=== PATIENT | male | born 1940 | race Caucasian/White ===

== ENCOUNTER 2020-04-30 13:24 | Outpatient (CLI) | payer MEDICARE, SELFPAY ==
--- NOTE | 2020-04-30 13:44 | ECHO_ITS ---
Patient Info Name: Devyn Candelario Age: 80 years : 1940 Gender: Male Ht: 70 in Wt: 200 lbs BSA: 2.14 m2 HR: 60 bpm BP: 102 / 62 mmHg Heart Rhythm: Sinus Rhythm Technical Quality: Good Exam Date: 04/30/2020 2:00 PM Exam Location: [facility] Patient Status: Outpatient Admit Date: 04/30/2020 Staff Ordering Physician: Heri Ovalle DO Senior Design Engineering Specialist: Terrell Salas RDCS Attending Provider: Heri Ovalle DO Referring Physician: Vasquez ADAMES; Exam Type: CA echo doppler color flow Study Info Indications I42.1 - Obstructive hypertrophic cardiomyopathy Complete two-dimensional, color flow and Doppler transthoracic echocardiogram is performed. Strain analysis performed. History/Risk Factors HOCM. Summary 1. Left ventricular chamber dimension is normal. 2. Ventricular septum is sigmoid shaped. No LVOT obstruction. 3. Left ventricular systolic function is normal, estimated at 60-65%. 4. There is mildly increased left ventricular wall thickness. 5. The left ventricular diastolic function is grade I diastolic dysfunction. 6. E/e' 13 is mildly elevated. 7. Global longitudinal strain is normal at -17.9%. 8. The mitral valve has mildly calcified annulus. 9. There is trace tricuspid valve regurgitation. 10. No pulmonary hypertension, estimated pulmonary arterial systolic pressure is 26 mmHg. Left Ventricle E/e' 13 is mildly elevated. Global longitudinal strain is normal at -17.9%. Ventricular septum is sigmoid shaped. No LVOT obstruction. Left ventricular chamber dimension is normal. Left ventricular systolic function is normal, estimated at 60-65%. There is mildly increased left ventricular wall thickness. The left ventricular diastolic function is grade I diastolic dysfunction. Right Ventricle Right ventricular chamber dimension is normal. Right ventricular systolic function is normal. Left Atria Left atrial chamber dimension is normal. Right Atria Right atrial chamber dimension is normal. Aortic Valve The aortic valve is trileaflet. There is no aortic valve stenosis. There is no aortic valve regurgitation. Pulmonic Valve There is no pulmonic regurgitation. Mitral Valve The mitral valve has mildly calcified annulus. There is no mitral valve stenosis. There is no mitral valve regurgitation. Tricuspid Valve There is trace tricuspid valve regurgitation. No pulmonary hypertension, estimated pulmonary arterial systolic pressure is 26 mmHg. Pericardium/Pleural There is no pericardial effusion. Inferior Vena Cava Normal inferior vena cava with >50% collapse upon inspiration consistent with normal right atrial pressure, 5 mmHg. Aorta The aortic root size at the sinus of Valsalva is normal. Left Ventricular Outflow Tract Name Value Normal LVOT 2D LVOT Diameter 2.0 cm LVOT Doppler LVOT Peak Gradient 3 mmHg LVOT Mean Gradient 1 mmHg LVOT VTI 18 cm LVOT VTI/AV VTI Ratio 0.8 LVOT Stroke Volume 56 ml
== END 2020-04-30 13:25 | disposition home or self-care (01) ==
PROVIDERS: PCP Internal Medicine; Visit Provider Internal Medicine Cardiovascular Disease
DX: I42.1 Obstructive hypertrophic cardiomyopathy (principal)
CPT/HCPCS: 93306

== ENCOUNTER 2020-08-19 14:08 | Emergency (ER) | payer MEDICARE, SELFPAY ==
--- NOTE | ~2020-08-19 | CT_ITS ---
EXAMINATION: CT brain wo con DATE: 08/19/2020 16:41 INDICATION: Generalized weakness. TECHNIQUE: Computed tomography (CT) of the head was performed without intravenous contrast. The mA wa s adjusted according to patient size. Iterative reconstruction technique was employed. The dose-lengt h product was 605.33 mGy-cm. COMPARISON: Brain MRI 04/04/2014 FINDINGS: There is no intracranial hemorrhage, acute infarction, or abnormal intracranial mass lesion . There are scattered areas of low attenuation in the cerebral white matter, which is within normal l imits for the patient's age. The ventricles are normal in size. The paranasal sinuses are clear. Ther e are likely changes of ocular lens replacement surgeries. There are trace bilateral mastoid effusion s. IMPRESSION: 1. Normal aging brain. Reviewed, dictated and finalized at location A. IMPRESSION: 1. Normal aging brain.
--- NOTE | ~2020-08-19 | XR_ITS ---
EXAMINATION: XR chest 2V DATE: 08/19/2020 15:06 INDICATION: Generalized weakness. Confusion. TECHNIQUE: Frontal and lateral views of the chest were obtained. COMPARISON: CT abdomen and pelvis 06/24/2018 FINDINGS: The chest demonstrates clear lungs without pneumonia, pleural effusion, or pneumothorax. Th e heart size is normal. There are prominent paracardial fat pads. Surgical clips in the right upper q uadrant are likely from cholecystectomy. IMPRESSION: 1. No acute cardiopulmonary disease. Reviewed, dictated and finalized at location A.
[2020-08-19 14:20] VITALS: BP 99/49; PULSE 65; RESP 16; TEMP 36.3; O2SAT 98
--- NOTE | 2020-08-19 14:25 | ECG_ITS ---
Measurements Intervals [place] Rate: 65 P: 26 DC: 170 QRS: -27 QRSD: 70 T: 45 QT: 385 QTc: 403 Interpretive Statements SINUS RHYTHM RSR' IN V1 OR V2, PROBABLY NORMAL VARIANT LOW QRS VOLTAGE IN PRECORDIAL LEADS INFERIOR INFARCT, AGE INDETERMINATE BASELINE ARTIFACT- I, II, AVR, AVL, AVF, V2 ABNORMAL ECG Electronically Signed On 08-19-2020 14:43:52 CDT by Heri Ovalle D.O.
[2020-08-19 15:20] LABS: Basophils Percent Auto 0.6 % (0.2-1.2); Eosinophils Absolute Auto 0.1 K/mm3 (0-0.3); Eosinophils Percent Auto 1.1 % (0-4.4); Hematocrit 44.7 % (42.0-52.0); Hemoglobin 14.6 g/dL (14.0-18.0); Immature Granulocyte Absolute 0.01 K/mm3 (0.00-0.031); Immature Granulocyte Percent A 0.2 % (0-0.5); Immature Platelet Fraction Pct 2.9 % (0.9-11.2); Lymphocytes Absolute Auto 1.97 K/mm3 (0.9-3.2); Lymphocytes Percent Auto 42.2 % (18.3-44.2); Mean Corpuscular HGB Conc 32.7 g/dl (32-36); Mean Corpuscular Hemoglobin 28.2 pg (26-34); Mean Corpuscular Volume 86.3 fl (80-100); Mean Platelet Volume 8.9 fl (7.4-10.4); Monocytes Absolute Auto 0.7 K/mm3 (0.1-0.6); Monocytes Percent Auto 14.6 % (2.6-8.5); Neutrophils Absolute Auto 1.9 K/mm3 (1.3-6.7); Neutrophils Percent Auto 41.3 % (45.5-73.1); Platelet Count Result 149 k/mm3 (150-375); Red Blood Count 5.18 M/mm3 (4.6-6.20); Red Cell Distribution Width 16.3 % (11.5-14.5); White Blood Count 4.7 K/mm3 (4.5-10.0)
[2020-08-19] MEDS: SODIUM CHLORIDE 0.9% IV 1,000 ML 999 ML IV CONT (15:23)
[2020-08-19 15:30] LABS: Alanine Aminotransferase 22 U/L (4-50); Albumin Level 3.7 g/dL (3.5-5.1); Alkaline Phosphatase 68 U/L (38-126); Anion Gap 9 mmol/L (8-16); Aspartate Amino Transferase 34 U/L (17-59); Bilirubin,Total 0.7 mg/dL (0.2-1.3); Blood Urea Nitrogen 21 mg/dL (9-20); Calcium 8.6 mg/dL (8.4-10.2); Carbon Dioxide 27 mmol/L (22-30); Chloride 104 mmol/L (98-107); Estimated CRCL calculation 51 ml/min; Estimated Glomerular Filt Rate > 60; Glucose 116 mg/dL (75-110); Potassium 4.2 mmol/L (3.4-5.0); Sodium 140 mmol/L (137-145)
--- NOTE | 2020-08-19 16:30 | ED.WEAKNESS ---
HPI - Weakness General Chief complaint: Weakness Stated complaint: low blood pressure, dehydration Time Seen by Provider: 08/19/20 14:38 History of Present Illness HPI Narrative: Patient is a 80-year-old male who presents ER with weakness. Patient was at his urology appointment earlier and found to be hypotensive so he was sent here for further evaluation. reports over the weekend he was dragging his right foot when he walks when he typically only drags his left foot. She is thought she noticed some right eyelid drooping yesterday but has since resolved. Patient has dementia from her previous medical event. He is currently alert and oriented to self, the fact that he is in the hospital, and the year. He cannot give details as to why he is in the ER. denies any infectious component. Related Data Home Medications Medication Instructions Recorded Confirmed aspirin 81 mg tablet,delayed 81 mg PO DAILY 09/12/19 04/11/20 release cetirizine 10 mg capsule PO DAILY cap 04/11/20 04/11/20 omega 4-keb-mup-fish oil 1,000 mg 1 cap PO DAILY 04/11/20 04/11/20 (120 mg-180 mg) capsule Allergies Allergy/AdvReac Type Severity Reaction Status Date / Time diazepam Allergy Unknown Unknown Verified 04/11/20 09:51 No Known Allergies Allergy Unknown Verified 04/11/20 09:51 Review of Systems Review of Systems: ROS unobtainable: Yes unobtainable due to mental status PMFSH Past Medical History Medical History (Updated 08/19/20 @ 17:58 by Tyrone Cha MD) 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 Enlarged prostate without lower urinary tract symptoms (luts) History of sudden cardiac arrest HOCM (hypertrophic obstructive cardiomyopathy) Major depressive disorder with single episode, in full remission Mixed hyperlipidemia Surgical History Surgical History (Updated 08/19/20 @ 16:34 by Tyrone Cha MD) S/P drug eluting coronary stent placement Family History Family History Mother Family history of dementia Family history of Alzheimer's disease Father Patient's father is Family history of throat cancer Other Family history of arthritis Family history of cardiovascular disease Hypertension Social History Social History Smoking status: Former smoker Second hand tobacco smoke exposure: No Smoking end date: 10/25/78 Alcohol intake: current Gender identity (if verbalized by the patient): Male Exam Narrative: Exam Narrative: GENERAL: Well-appearing, well-nourished, and in no acute distress. HEAD: Normocephalic, atraumatic. EYES: PERRL and EOMI. ENT: Mucous membranes moist. CHEST: Clear to auscultation. No respiratory distress. HEART: Regular rate and rhythm. No murmur heard. Normal peripheral pulses. ABDOMEN: Soft, nontender, nondistende. EXTREMITIES: Normal range of motion. No edema. SKIN: Warm, dry, no rash. NEURO: No focal deficits. Alert and oriented x3 but unable to give a history. Cranial nerves II through XII intact. No drift. Course Course Emergency Course: Unremarkable evaluation. Hydrated. Discharge home. Vital Signs Vital signs: Vital Signs Temperature 97.4 F L 08/19/20 14:20 Pulse Rate 65 08/19/20 14:20 Respiratory Rate 16 08/19/20 14:20 Blood Pressure 99/49 L 08/19/20 14:20 Pulse Oximetry 98 08/19/20 14:20 Temperature 97.4 F L 08/19/20 14:20 Pulse Rate 65 08/19/20 14:20 Respiratory Rate 16 08/19/20 14:20 Blood Pressure 99/49 L 08/19/20 14:20 Pulse Oximetry 98 08/19/20 14:20 MDM - Weakness Lab Data Result diagrams: 08/19/20 15:12 08/19/20 15:12 Labs: Lab Results 08/19/20 08/19/20 Range/Units 15:12 15:12 WBC 4.7 (4.5-10.0) K/mm3 RBC 5.18 (4.6-6.20) M/mm3 Hgb 14.6 (14.0-18.0) g/dL Hct 44.7 (42.0-52.0) % MCV 86.3 (80-100) fl
[2020-08-19 17:00] VITALS: BP 103/65; PULSE 64; RESP 16; O2SAT 97
[2020-08-19 18:00] VITALS: BP 105/67; PULSE 62; RESP 16; O2SAT 97
== END 2020-08-19 18:00 | disposition home or self-care (01) ==
PROVIDERS: Emergency Provider Emergency Medicine; PCP Internal Medicine
DX: R53.1 Weakness (principal); I25.10 Atherosclerotic heart disease of native coronary artery without angina pectoris; N40.0 Benign prostatic hyperplasia without lower urinary tract symptoms; I42.1 Obstructive hypertrophic cardiomyopathy; E78.2 Mixed hyperlipidemia; Z95.5 Presence of coronary angioplasty implant and graft; Z87.891 Personal history of nicotine dependence
CPT/HCPCS: 36415; 70450; 71046; 80053; 85025; 85055; 93005; 96360; 99284; J7030

== ENCOUNTER 2020-11-30 20:24 | Emergency (ER) | payer MEDICARE, SELFPAY ==
[2020-11-30 20:25] VITALS: BP 94/62; PULSE 74; RESP 16; TEMP 36.3; O2SAT 99
--- NOTE | 2020-11-30 21:01 | ED.SKABFB ---
HPI - Skin/Abscess/Foreign Bdy General Chief complaint: Skin/Abscess/Foreign Body Stated complaint: possible spider bite Time Seen by Provider: 11/30/20 20:42 Source: patient Mode of arrival: ambulatory Limitations: no limitations History of Present Illness HPI narrative: Patient is a 72-year-old male complaining of red, tender area on his left pubis which his noticed today. also noticed yellowish, reddish discharge. Denies any fever or chills. Possible insect bite. 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 Enlarged prostate without lower urinary tract symptoms (luts) History of sudden cardiac arrest HOCM (hypertrophic obstructive cardiomyopathy) Major depressive disorder with single episode, in full remission Mixed hyperlipidemia Surgical History Surgical History S/P drug eluting coronary stent placement Family History Family History Mother Family history of dementia Family history of Alzheimer's disease Father Patient's father is Family history of throat cancer Other Family history of arthritis Family history of cardiovascular disease Hypertension Social History Social History Smoking status: Former smoker Second hand tobacco smoke exposure: No Smoking end date: 10/25/78 Alcohol intake: current Gender identity (if verbalized by the patient): Male Exam Const: General: no acute distress and alert Nutritional Appearance: well nourished HENMT: Head: normal to inspection Neck: Neck: normal visual inspection Resp: Effort & Inspection: normal respiratory effort Skin: Other: Erythematous, slightly tender, nonfluctuant with mild purulent discharge measuring approximately 3 x 4 cm left pubic area Course Vital Signs Vital signs: Vital Signs Temperature 36.3 C L 11/30/20 20:25 Pulse Rate 74 11/30/20 20:25 Respiratory Rate 16 11/30/20 20:25 Blood Pressure 94/62 L 11/30/20 20:25 Pulse Oximetry 99 11/30/20 20:25 Temperature 36.3 C L 11/30/20 20:25 Pulse Rate 74 11/30/20 20:25 Respiratory Rate 16 11/30/20 20:25 Blood Pressure 94/62 L 11/30/20 20:25 Pulse Oximetry 99 11/30/20 20:25 Discharge Plan Discharge Clinical Impression: Cellulitis Qualifiers: Site of cellulitis: unspecified site Qualified Code(s): L03.90 - Cellulitis, unspecified Patient Disposition: Home, Self-Care Condition: Stable Instructions: Antibiotic Form, Cellulitis (ED) Prescriptions: New doxycycline hyclate 100 mg capsule 100 mg PO BID 7 Days Qty: 14 RF: 0 No Action Zyrtec 10 mg capsule PO DAILY RF: 0 omega 3-iti-leh-fish oil [Fish Oil] 1,000 mg (120 mg-180 mg) capsule 1 cap PO DAILY RF: 0 lisinopril 2.5 mg tablet 2.5 mg PO DAILY Qty: 90 RF: 2 aspirin [Adult Low Dose Aspirin] 81 mg tablet,delayed release (DR/EC) 81 mg PO DAILY RF: 0 atorvastatin 40 mg tablet 40 mg PO DAILY Qty: 90 RF: 4 finasteride 5 mg tablet 5 mg PO DAILY Qty: 90 RF: 4 metoprolol tartrate 25 mg tablet 25 mg PO BID Qty: 180 RF: 4 Follow-up/Referrals: Ariel Garrett MD [Primary Care Provider] - 12/02/20 Time
[2020-11-30] MEDS: DOXYCYCLINE HYCLATE 100 MG TABLET PO (21:31)
[2020-11-30 21:55] VITALS: BP 100/62; PULSE 74; RESP 16; O2SAT 97
== END 2020-11-30 21:55 | disposition home or self-care (01) ==
PROVIDERS: Emergency Provider Emergency Medicine; PCP Internal Medicine
DX: L03.319 Cellulitis of trunk, unspecified (principal); I25.10 Atherosclerotic heart disease of native coronary artery without angina pectoris; N40.0 Benign prostatic hyperplasia without lower urinary tract symptoms; E78.2 Mixed hyperlipidemia; Z95.5 Presence of coronary angioplasty implant and graft; Z87.891 Personal history of nicotine dependence; Z79.82 Long term (current) use of aspirin
CPT/HCPCS: 99283; A9270

== ENCOUNTER 2020-12-21 22:43 | Inpatient (IN) | payer MEDICARE, SELFPAY ==
[2020-12-21] VITALS (10 sets, daily range): BP systolic 106–139; BP diastolic 58–82; PULSE 112–129; RESP 14–28; TEMP 39.5; O2SAT 95–99
--- NOTE | ~2020-12-21 | XR_ITS ---
XR chest 1V portable DATE: 12/21/2020 23:18 INDICATION: Cough TECHNIQUE: Portable upright AP chest on December 21, 2020 and 2319 hours COMPARISON: 08/19/2020 AP and lateral chest FINDINGS: Normal heart size. Aortic arch calcification. No hilar or mediastinal enlargement. There is retrocardiac left lower lobe infiltrate or atelectasis. There is mild atelectasis at the rig ht lung base. The lungs otherwise appear clear. No pleural effusion or pulmonary vascular congestion or pneumothorax. Bilateral rotator cuff atrophy and glenohumeral osteoarthritis. Diffuse osteopenia. Degenerative spur ring of the thoracic spine. IMPRESSION: Left lower lobe infiltrate or atelectasis and mild atelectasis at the right lung base Reviewed, dictated and finalized at location A. IR SERVICER IMPRESSION: Left lower lobe infiltrate or atelectasis and mild atelectasis at t he right lung base
--- NOTE | ~2020-12-21 | XR_ITS ---
XR chest port-a-cath/central DATE: 12/22/2020 03:22 INDICATION: Central line placement TECHNIQUE: Portable AP chest on December 22, 2020 at 0323 hours COMPARISON: December 21, 2020 portable AP chest at 2319 hours FINDINGS: Interval placement of right internal jugular central venous catheter, the catheter tip over lying the superior vena cava. There is no evidence of pneumothorax. There is pulmonary vascular congestion, prominence of the minor fissure and there are Gilbert B-lines, consistent with congestive changes including pulmonary interstitial and subpleural edema. Small left pleural effusion. Mild infiltrate or atelectasis at the lung bases. Heart size appears within normal limits considering magnification associated with AP projection. Is a ortic arch calcification. Bilateral rotator cuff atrophy. Osteopenia. Degenerative spurring of the thoracic spine. Surgical clips, right upper quadrant, consistent with cholecystectomy. IMPRESSION: Congestive changes including pulmonary vascular congestion, subpleural and pulmonary inte rstitial edema Bilateral lower lung infiltrate and/atelectasis Interval right internal jugular central venous catheter placement, catheter tip overlying superior ve na cava Reviewed, dictated and finalized at Location A. Reviewed, dictated and finalized at location A. PROFILER IMPRESSION: Congestive changes including pulmonary vascular congestion, subpleu ral and pulmonary interstitial edema Bilateral lower lung infiltrate and/atelectasis Interval right internal jugular central venous catheter placement, catheter tip overlying superior vena cava
--- NOTE | ~2020-12-21 | CT_ITS ---
EXAMINATION: CT abdomen pelvis w con DATE: 12/22/2020 00:47 INDICATION: Abdominal pain TECHNIQUE: Computed tomography (CT) of the abdomen and pelvis was performed with 100 cc Omnipaque 350 intravenous contrast. Automated exposure control and iterative reconstruction technique were employe d. Exam dose: 812.88 mGy-cm total exam DLP. COMPARISON: 06/24/2018 CT abdomen pelvis FINDINGS: Mild dependent atelectasis at the lower lobes. No pericardial or pleural effusion. Status post cholecystectomy. No bile duct or pancreatic duct dilatation. No hepatic, splenic, pancrea tic or adrenal space-occupying mass lesion. Scattered bilateral renal cysts. No urinary tract calculus or hydroureteronephrosis is evident. There is thickening of the wall of the urinary bladder, possibly due to prostatomegaly. There are pro state calcifications. Normal caliber and atherosclerotic calcification of the abdominal aorta. No abdominal aortic aneurysm . No intraperitoneal or retroperitoneal or pelvic mass lesion or adenopathy or ascites. 2.9 cm wide fat-containing umbilical hernia. Small sliding hiatal hernia. Normal appendix. There is diverticulosis of the sigmoid colon; no CT evidence of diverticulitis. No bowel obstruction, bowel wall thickening, pneumatosis or intraperitoneal free air. Extensive degenerative changes of the lower thoracic and lumbar spine. There is fusion at L3-L5. Ther e is severe degenerative disc disease at the remaining lumbar and lumbosacral interspaces. IMPRESSION: Very small sliding hiatal hernia Status post cholecystectomy Scattered bilateral renal cysts Normal appendix Diverticulosis of the sigmoid colon; no CT evidence of diverticulitis Prostatomegaly and bladder thickening and urinary bladder wall Reviewed, dictated and finalized at Location [facility]. Reviewed, dictated and finalized at location A. CTOR EMPLOYEE COMMUNICATIONS
--- NOTE | ~2020-12-21 | CT_ITS ---
EXAMINATION: CT brain wo con DATE: 12/21/2020 23:32 INDICATION: Altered mental state TECHNIQUE: Computed tomography (CT) of the head was performed without intravenous contrast. The mA wa s adjusted according to patient size. Iterative reconstruction technique was employed. Exam dose: 60 5.33 mGy-cm total exam DLP. COMPARISON: 08/19/2020 CT brain FINDINGS: Examination limited by motion artifact, particularly high over the convexities. No intracranial mass lesion or hemorrhage or cerebrovascular accident is evident. No midline shift or mass effect effect. There is moderate central and cortical cerebral and cerebellar volume loss. Bilateral carotid siphon internal carotid artery calcification. Nonspecific diminished attenuation of the cerebral white matter, likely due to chronic small vessel ischemic changes. No fracture or bone destruction of the cranial vault is evident. IMPRESSION: No acute intracranial finding or significant change since 08/19/2020 Reviewed, dictated and finalized at Location [facility]. Reviewed, dictated and finalized at location A. EGE DEAN
--- NOTE | 2020-12-21 22:47 | ECG_ITS ---
Measurements Intervals [place] Rate: 127 P: 20 MI: 165 QRS: -39 QRSD: 67 T: 38 QT: 307 QTc: 447 Interpretive Statements SINUS TACHYCARDIA INCOMPLETE RIGHT BUNDLE BRANCH BLOCK LOW QRS VOLTAGE IN PRECORDIAL LEADS POOR R WAVE PROGRESSION, ANTERIOR LEADS INFERIOR INFARCT, AGE INDETERMINATE BASELINE ARTIFACT- I, II, III, AVR, AVL, AVF, V2-V3 ABNORMAL ECG Electronically Signed On 12-22-2020 7:57:45 CLINICAL DENTAL TECHNICIAN by Heri Ovalle D.O.
--- NOTE | 2020-12-21 22:52 | ED.GENADULT ---
HPI - General Adult General Chief complaint: Altered Mental Status Stated complaint: altered Source: RN notes reviewed History of Present Illness HPI narrative: Patient presents emergency department from home for weakness and altered mental status. History is per the patient's who is present as well as EMS per the patient's the patient has been having frequent urination for the past 2 days and began to have blood in the urine today this evening he was taking a shower and when irrigated by the shower they are having a hard time getting the patient to ambulate he seemed weaker than normal he laid down the bed and began to have severe chills at that time called an ambulance when EMS initially arrived they noted his pulse ox was 80-89. At this time family states the patient is at baseline mentally patient denies having any chest pain or shortness of breath abdominal pain nausea vomiting Related Data Home Medications Medication Instructions Recorded Confirmed aspirin 81 mg tablet,delayed 81 mg PO DAILY 09/12/19 12/22/20 release cetirizine 10 mg capsule 10 mg PO DAILY cap 04/11/20 12/22/20 omega 9-bwi-hwz-fish oil 1,000 mg 1 cap PO DAILY 04/11/20 12/22/20 (120 mg-180 mg) capsule atorvastatin 40 mg PO HS 12/22/20 12/22/20 finasteride 5 mg PO HS 12/22/20 12/22/20 Allergies Allergy/AdvReac Type Severity Reaction Status Date / Time diazepam Allergy Unknown Unknown Verified 10/10/20 09:47 Review of Systems Review of Systems: Narrative: Gen.: Fevers and chills ENT: Denies congestion Respiratory: Denies shortness of breath or cough CV: Denies chest pain or palpitations GI: Denies abdominal pain nausea, emesis or diarrhea reports frequency and hematuria Musculoskeletal: Denies back pain or muscle pain Neuro: Altered mental status Skin: Denies rash Except as documented, all other systems reviewed and negative [facility] Past Medical History Medical History 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 Enlarged prostate without lower urinary tract symptoms (luts) H/O: HTN (hypertension) History of sudden cardiac arrest HOCM (hypertrophic obstructive cardiomyopathy) Major depressive disorder with single episode, in full remission Mixed hyperlipidemia Surgical History Surgical History S/P drug eluting coronary stent placement Family History Family History Mother Family history of dementia Family history of Alzheimer's disease Father Patient's father is Family history of throat cancer Other Family history of arthritis Family history of cardiovascular disease Hypertension Social History Social History Smoking packs per day: 3 Smoking cigarettes per day: 60.0 Years smoked: 15 Smoking pack-years: 45.00 Smoking status: Never smoker Tobacco type: cigarettes Second hand tobacco smoke exposure: No Smoking end date: 10/25/78 Alcohol intake: never Substance use: never Gender identity (if verbalized by the patient): Male Spiritual care concerns: No Exam Narrative: Exam Narrative: APPEARANCE: No acute distress, nontoxic, resting in bed EYES: EOMI HEENT: Normocephalic, atraumatic, OMM RESPIRATORY: No respiratory distress Clear to auscultation bilaterally with no rhonchi wheezing or rales. CARDIOVASCULAR: Tachycardic and regular without murmurs rubs or gallops. ABDOMINAL: Soft, nontender, nondistended, no rebound or guarding MUSCULOSKELETAl: Moves all extremities. No clubbing, cyanosis or edema. NEURO: Awake and alert x 2 Following commands, speech normal, no focal deficits SKIN:: Warm, dry. No rashes lesions or abrasions PSYCHIATRIC: Normal affect/mood, Course Course Emergency Course: Discussed with the patient has a history of enlarged p
[2020-12-21] MEDS: SODIUM CHLORIDE 0.9% IV 1,000 ML 999 ML IV CONT (23:01)
[2020-12-21 23:14] LABS: Basophils Percent Auto 0.3 % (0.2-1.2); Eosinophils Percent Auto 0.3 % (0-4.4); Hemoglobin 15.8 g/dL (14.0-18.0); Immature Granulocyte Absolute 0.03 K/mm3 (0.00-0.031); Immature Granulocyte Percent A 0.4 % (0-0.5); Immature Platelet Fraction Pct 2.2 % (0.9-11.2); Lymphocytes Absolute Auto 0.39 K/mm3 (0.9-3.2); Lymphocytes Percent Auto 5.8 % (18.3-44.2); Mean Corpuscular HGB Conc 32.9 g/dl (32-36); Mean Corpuscular Hemoglobin 28.2 pg (26-34); Mean Corpuscular Volume 85.6 fl (80-100); Mean Platelet Volume 9.1 fl (7.4-10.4); Monocytes Absolute Auto 0.1 K/mm3 (0.1-0.6); Neutrophils Absolute Auto 6.2 K/mm3 (1.3-6.7); Neutrophils Percent Auto 92.2 % (45.5-73.1); Platelet Count Result 157 k/mm3 (150-375); Red Blood Count 5.61 M/mm3 (4.6-6.20); Red Cell Distribution Width 15.6 % (11.5-14.5); White Blood Count 6.7 K/mm3 (4.5-10.0)
[2020-12-21 23:17] LABS: Add Urine Microscopic? YES; Appearance Urine Clear (Clear); Bilirubin Urine Negative (Negative); Blood Urine 3+ (Negative); Color Urine Yellow (Yellow); Glucose Urine UA Negative (Negative); Ketones Urine Negative (Negative); Leukocyte Esterase Ur 1+ LEU/UL (Negative); Mucus Urine Rare /lpf; Nitrate Urine Negative (Negative); Protein Urine Negative (Negative); RBC Urine >75 /hpf (0-2); Specific Grav Ur 1.012 (1.001-1.035); Squamous Epithelial Cell Urine Moderate /hpf (Few); Urobilinogen Urine Negative mg/dL (<2.0)
[2020-12-21 23:22] LABS: INR 1.1; Prothrombin Time 14.6 Seconds (11.1-14.7)
[2020-12-21 23:23] LABS: Partial Thromboplastin Time 29.7 SECONDS (22.3-36.8)
[2020-12-21 23:26] LABS: Alanine Aminotransferase 19 U/L (4-50); Albumin Level 3.6 g/dL (3.5-5.1); Alkaline Phosphatase 90 U/L (38-126); Anion Gap 4 mmol/L (8-16); Aspartate Amino Transferase 24 U/L (17-59); Bilirubin,Total 0.9 mg/dL (0.2-1.3); Blood Urea Nitrogen 23 mg/dL (9-20); Calcium 8.7 mg/dL (8.4-10.2); Carbon Dioxide 31 mmol/L (22-30); Chloride 103 mmol/L (98-107); Estimated CRCL calculation 57 ml/min; Estimated Glomerular Filt Rate > 60; Glucose 86 mg/dL (75-110); Potassium 3.9 mmol/L (3.4-5.0); Sodium 138 mmol/L (137-145)
[2020-12-22] VITALS (36 sets, daily range): BP systolic 85–126; BP diastolic 49–87; PULSE 61–116; RESP 14–26; TEMP 36.2–37.6; O2SAT 93–99; BMI 28.0
[2020-12-22] MEDS: SODIUM CHLORIDE 0.9% IV 1,000 ML 999 ML IV CONT (00:57)
--- NOTE | 2020-12-22 01:05 | PC.NURSE ---
MD Rick aware of pt's decreased BP. No new orders at this time.
[2020-12-22] MEDS: SODIUM CHLORIDE 0.9% IV 2,700 ML/1,000 ML BAG 999 ML IV CONT (01:51)
[2020-12-22] MEDS: SODIUM CHLORIDE 0.9% IV 1,000 ML 100 ML IV CONT ×3 (03:01→23:47)
--- NOTE | 2020-12-22 03:45 | ADMGEN ---
This patient, Devyn Candelario, was admitted to Intensive Care Unit-3. Patient/family oriented to hospital policies and general routines including ID bracelet, bed and alarms, visiting hours, pain management, procedures, bathroom and other care routines, personal items, smoking policy, room service/diet, and visiting hours. Information on how to activate the Rapid Response Team has been discussed. Patient/Family are encouraged to report perceived risks to care and to ask questions if they do not understand what they are told or what they should do.
--- NOTE | 2020-12-22 04:14 | PM.IMHP ---
H&P: HPI History of Present Illness Date/Time: 12/22/20 04:14 Chief Complaint: Altered mental status. Narrative: This is a 80 year old male with known cognitive attention deficit, HOCM, CAD+ and hyperlipidemia who presented to the [facility] with altered mental status. The patient was evaluated in the ER and found to be in septic shock with tachycardia, tachypnea, fever, and persistent hypotension despite an adequate NS IV bolus. Routine labs demonstrated an abnormal urinalysis. He was started on wide spectrum IV antibiotics for his septic shock. The patient is normally only oriented x2. [facility] he appears very confused and cannot tell me why he is here. He has no complaints and denies any current symptoms including headache, chills, shortness of breath, chest pain, palpitations, abdominal pain, nausea, vomiting, diarrhea, dysuria, or rectal bleeding. He also does not know his home address or who the president is. He can tell me the day of the week and his birthday but he does not know any of his medical conditions or medical history. CT brain was unremarkable for any acute pathology. Financial Compliance Examiner, Dr. Herrera has been consulted. No other history is obtainable at this time. Review of Systems Review of Systems: All systems reviewed & are unremarkable except as noted in HPI and below PMFSH Past Medical History Medical History CAD in [place] artery Cognitive attention deficit Enlarged prostate without lower urinary tract symptoms (luts) H/O: HTN (hypertension) History of sudden cardiac arrest HOCM (hypertrophic obstructive cardiomyopathy) Major depressive disorder with single episode, in full remission Mixed hyperlipidemia Surgical History Surgical History S/P drug eluting coronary stent placement Family History Family History Mother Family history of dementia Family history of Alzheimer's disease Father Patient's father is Family history of throat cancer Other Family history of arthritis Family history of cardiovascular disease Hypertension Social History Social History Smoking packs per day: 3 Smoking cigarettes per day: 60.0 Years smoked: 15 Smoking pack-years: 45.00 Smoking status: Never smoker Tobacco type: cigarettes Second hand tobacco smoke exposure: No Smoking end date: 10/25/78 Alcohol intake: never Substance use: never Gender identity (if verbalized by the patient): Male Spiritual care concerns: No Meds Home Medications and Allergies Home Medications Medication Instructions Recorded Confirmed Type cetirizine 10 mg capsule 10 mg PO DAILY cap 04/11/20 12/31/20 History omega 7-mga-vlt-fish oil 1,000 mg 1 cap PO DAILY 04/11/20 12/31/20 History (120 mg-180 mg) capsule lisinopril 2.5 mg tablet 2.5 mg PO DAILY #90 tablet 10/10/20 12/31/20 Rx finasteride 5 mg PO HS 12/22/20 12/31/20 History amiodarone [Pacerone] 200 mg PO BID #60 tablet 12/26/20 12/31/20 Rx aspirin 81 mg PO QAM #30 tablet 12/26/20 12/31/20 Rx atorvastatin 40 mg PO DAILY #30 tablet 12/26/20 12/31/20 Rx magnesium oxide 400 mg PO QAM #30 tablet 12/26/20 12/31/20 Rx metoprolol tartrate 12.5 mg PO BID #60 tablet 12/26/20 12/31/20 Rx Allergies Allergy/AdvReac Type Severity Reaction Status Date / Time diazepam Allergy Unknown Unknown Verified 12/31/20 11:44 Vital Signs Vital Signs - 24 hr 12/21/20 22:40 12/21/20 22:51 12/21/20 22:52 Temperature 39.5 C H Pulse Rate 129 H 127 H Respiratory Rate 21 H 28 H 22 H Blood Pressure 138/58 L Pulse Oximetry 96 99 96 12/21/20 23:00 12/21/20 23:01 12/21/20 23:15 Temperature Pulse Rate 121 H 122 H 119 H Respiratory Rate 20 17 20 Blood Pressure 139/82 Pulse Oximetry 12/21/20 23:33 12/21/20 2
[2020-12-22 04:57] LABS: Alveolar/Arterial O2 Gradient 40.3 mmHg; Base Excess ABG -5.2 mEq/l (+/-2.0); Device ROOM AIR; Fractional Inspired Oxygen 21 %; Modified Allen's Test Pass; Oxygen Content ABG 18.2 %vol (16.0-22.0); Oxygen Saturation ABG 93.8 % (95.0-100.0); Oxyhemoglobin 92.6 % THb (90.0-100.0); PCO2 ABG 33.3 mmHg (35.0-45.0); PO2 ABG 69.6 mmHg (80.0-100.0); PO2 FiO2 Ratio Arterial Blood 3.31 %; Site Drawn LEFT RADIAL; pH ABG 7.375 (7.350-7.450)
[2020-12-22] MEDS: CENTRAL LINE FLUSH 10 ML IV PUSH ×2 (06:29→13:04)
[2020-12-22 07:18] LABS: Hematocrit 39.6 % (42.0-52.0); Immature Platelet Fraction Pct 2.3 % (0.9-11.2); Mean Corpuscular HGB Conc 32.8 g/dl (32-36); Mean Corpuscular Hemoglobin 28.2 pg (26-34); Mean Corpuscular Volume 85.9 fl (80-100); Mean Platelet Volume 8.9 fl (7.4-10.4); Platelet Count Result 142 k/mm3 (150-375); Red Blood Count 4.61 M/mm3 (4.6-6.20); Red Cell Distribution Width 15.6 % (11.5-14.5); White Blood Count 17.1 K/mm3 (4.5-10.0)
[2020-12-22 07:28] LABS: Ammonia < 9 umol/L (9-30); Anion Gap 1 mmol/L (8-16); Blood Urea Nitrogen 18 mg/dL (9-20); Calcium 7.7 mg/dL (8.4-10.2); Carbon Dioxide 25 mmol/L (22-30); Chloride 112 mmol/L (98-107); Estimated CRCL calculation 61 ml/min; Estimated Glomerular Filt Rate > 60; Glucose 103 mg/dL (75-110); Potassium 3.9 mmol/L (3.4-5.0); Sodium 138 mmol/L (137-145)
[2020-12-22 07:31] LABS: CRP 5.2 mg/dL (<1.0)
[2020-12-22 07:36] LABS: Erythrocyte Sedimentation Rate 21 mm/hr (0-20)
[2020-12-22 07:41] LABS: Band Neutrophils Percent 16 % (0-6); Lymphocytes Absolute Manual 0.51 K/mm3 (1.1-4.5); Monocytes Absolute Manual 0.68 K/mm3 (0.1-0.90); Monocytes Percent Manual 4 % (3-9); Neutrophils Percent Manual 77 % (46-73); Ovalocytes 1+ (NORMAL); Platelet Estimate Adequate (Adequate); Poikilocytosis 1+ (NORMAL); Total Cells Counted 100
[2020-12-22] MEDS: CALCIUM GLUC 2,000 MG/NS 100ML 2,000 MG/100 ML BAG 100 MG IVPB (08:09)
[2020-12-22 08:35] LABS: Folic Acid 3.5 ng/mL (2.76->20)
--- NOTE | 2020-12-22 09:16 | WPDCNINT ---
Assessment and Plan Assessment and plan (1) Severe sepsis: Code(s): A41.9 - Sepsis, unspecified organism; R65.20 - Severe sepsis without septic shock Status: Acute Assessment and Plan: Severe sepsis with tachycardia, shortness of breath, UTI, hypotension -patient was given adequate IV fluid bolus of 30 mL/kg in the ER -central line was inserted with patient did not require any pressors -blood pressures have been stable, mean arterial pressures have been > 65 mmHg -continue ceftriaxone and vancomycin -blood and urine cultures have been obtained and pending, will deescalate antibiotics after cultures are resulted (2) Acute encephalopathy: Code(s): G93.40 - Encephalopathy, unspecified Status: Acute Assessment and Plan: Resolved -patient is awake, alert, oriented x2. This is his baseline according to his -likely related to severe sepsis, UTI, dehydration (3) UTI (urinary tract infection): Code(s): N39.0 - Urinary tract infection, site not specified Status: Acute Assessment and Plan: CT scan of the abdomen and pelvis showed mild circumferential wall thickening of the urinary bladder which can be correlated with urinalysis to evaluate for urinary tract infection. -urine cultures have been obtained and pending, continue antibiotics as above (4) DVT prophylaxis: Code(s): Z29.9 - Encounter for prophylactic measures, unspecified Status: Acute Assessment and Plan: Started on heparin SQ Additional Plan Discussed with patient's and updated her with patient's condition and plan of care. I answered all questions Code status: Do not resuscitate Critical care time spent: 44 minutes This dictation may have been done utilizing a voice recognition system. Attempts have been made to correct errors. However, there may be uncorrected grammatical, spelling, and recognition errors present. Due to a high probability of clinically significant, life threatening deterioration, the patient required my highest level of preparedness to intervene emergently and I personally spent this critical care time directly and personally managing the patient. This critical care time included obtaining a history; examining the patient; pulse oximetry; ordering and review of studies; arranging urgent treatment with development of a management plan; evaluation of patient's response to treatment; frequent reassessment; and discussions with other providers. It was exclusive of separately billable procedures and treating other patients and teaching time. Please see Assessment and Plan section and the rest of the note for further information on patient assessment and treatment Pediatric Licensed Practical Nurse Consult Note Consult date: 12/22/20 Time Seen: 07:01 Reason for consult: Severe sepsis, UTI HPI: Devyn Candelario is a 80 year old male 80-year-old gentleman with history of coronary artery disease, cognitive attention deficit, enlarged prostate history of sudden cardiac arrest, hypertrophic obstructive cardiomyopathy, major depressive disorder, mixed hyperlipidemia presented the ED on 12/21/2020 with altered mental status for the last 2 days. He did have some blood in the urine on the day of admission. Patient was significantly weak and the had a hard time getting the patient to ambulate. He also complains of chills. In the ER he was found to be in severe sepsis with tachycardia, tachypnea, fevers persistent hypotension despite 30 mL/kg IV fluid bolus. Central line was inserted. The initial lactic acid was 2.0, repeat was 1.0. Patient was transferred to the ICU for further management Patient seen and examined this morning. Patient is alert, awake, oriented x 2, did not know the year but he knew his date of . Patient denies any chest pain, shortness of breath abdominal pain, nausea, vomiting, diarrhea. States he feels better. He was at a fever eat something. Patient denies any tobacco use, illicit drug
[2020-12-22] MEDS: hetaSTARCH 6%/NACL 500 ML 250 ML IV CONT (11:34)
--- NOTE | 2020-12-22 16:31 | PM.IMPN ---
Progress Note: A&P Assessment and Plan (1) Septic shock: Code(s): A41.9 - Sepsis, unspecified organism; R65.21 - Severe sepsis with septic shock Status: Acute Assessment and Plan: 12/22/20 16:31 patient is 80-year-old male with history of coronary artery disease 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myopathy, major depressive disorder patient was brought emergency depart by his as patient was quite lethargic difficulty with ambulation emergency department patient was in sepsis with tachycardia tachypnea fever and slightly elevated lactic acid, and persistent hypotension despite receiving 30 milliliter/kilogram bolus suspect most likely secondary UTI, patient was placed on IVF patient did not require any pressor and his MAP remained stable, discussed with puppet developer patient is clinically stable will transfer patient out of ICU with telemetry, will continue Rocephin and vancomycin will follow-up on urine and blood culture and further recommendation to follow. (2) UTI (urinary tract infection): Code(s): N39.0 - Urinary tract infection, site not specified Status: Acute Assessment and Plan: Patient is being treated with Rocephin will follow-up on urine culture and sensitivity (3) Acute encephalopathy: Code(s): G93.40 - Encephalopathy, unspecified Status: Acute Assessment and Plan: Most likely metabolic related to severe sepsis and UTI patient clinically symptoms are improving (4) HOCM (hypertrophic obstructive cardiomyopathy): Code(s): I42.1 - Obstructive hypertrophic cardiomyopathy Status: Acute Assessment and Plan: Patient clinically stable (5) Cognitive attention deficit: Code(s): R41.840 - Attention and concentration deficit Status: Acute Assessment and Plan: Remains clinically stable will continue to monitor (6) CAD in [place] artery: Code(s): I25.10 - Atherosclerotic heart disease of [place] coronary artery without angina pectoris Status: Acute Assessment and Plan: No complaint of chest pain (7) Mixed hyperlipidemia: Code(s): E78.2 - Mixed hyperlipidemia Status: Acute Assessment and Plan: Will continue home regimen (8) H/O: HTN (hypertension): Code(s): Z86.79 - Personal history of other diseases of the circulatory system Status: Acute Assessment and Plan: Will continue home regimen and monitor Subjective Date/time seen: 12/22/20 16:31 patient is 80-year-old male with history of coronary artery disease 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myopathy, major depressive disorder patient was brought emergency depart by his as patient was quite lethargic difficulty with ambulation emergency department patient was in sepsis with tachycardia tachypnea fever and slightly elevated lactic acid, and persistent hypotension despite receiving 30 milliliter/kilogram bolus suspect most likely secondary UTI, patient was placed on IVF patient did not require any pressor and his MAP remained stable, discussed with puppet developer patient is clinically stable will transfer patient out of ICU with telemetry, will continue Rocephin and vancomycin will follow-up on urine and blood culture and further recommendation to follow. Review of Systems Review of Systems: All systems reviewed & are unremarkable except as noted in HPI and below Exam Narrative: Exam Narrative: Appears chronically ill, elderly frail Patient is comfortable, NAD HEENT: eyes are clear and none icteric LUNGS: Bilateral fair entry with rhonchi HEART: RR S1S2 ABD: BS+, Soft and nontender Lower extremities: no edema SKIN: nonjaundiced Neuro: grossly intact. Objective Data Vital Signs Vital Signs: Vital Signs - 24 hr 12/21/20 22:40 12/21/20 22:51 12/21/20 22:52 Temperature 103.1 F H Pulse Rate 129 H 127 H
[2020-12-22] MEDS: HEPARIN SODIUM 5,000 UNITS/ML VIAL 5000 UNITS SUB-Q (20:52)
[2020-12-23] VITALS (12 sets, daily range): BP systolic 105–134; BP diastolic 58–80; PULSE 81–103; RESP 16–20; TEMP 36.1–36.3; O2SAT 93–99
[2020-12-23 05:10] LABS: Basophils Percent Auto 0.2 % (0.2-1.2); Eosinophils Absolute Auto 0.1 K/mm3 (0-0.3); Eosinophils Percent Auto 0.7 % (0-4.4); Hemoglobin 12.3 g/dL (14.0-18.0); Immature Granulocyte Absolute 0.08 K/mm3 (0.00-0.031); Immature Granulocyte Percent A 0.6 % (0-0.5); Immature Platelet Fraction Pct 1.5 % (0.9-11.2); Lymphocytes Absolute Auto 1.89 K/mm3 (0.9-3.2); Lymphocytes Percent Auto 14.4 % (18.3-44.2); Mean Corpuscular HGB Conc 33.2 g/dl (32-36); Mean Corpuscular Hemoglobin 28.3 pg (26-34); Mean Corpuscular Volume 85.1 fl (80-100); Mean Platelet Volume 9.5 fl (7.4-10.4); Monocytes Absolute Auto 0.9 K/mm3 (0.1-0.6); Monocytes Percent Auto 6.6 % (2.6-8.5); Neutrophils Absolute Auto 10.2 K/mm3 (1.3-6.7); Neutrophils Percent Auto 77.5 % (45.5-73.1); Platelet Count Result 119 k/mm3 (150-375); Red Blood Count 4.35 M/mm3 (4.6-6.20); Red Cell Distribution Width 15.9 % (11.5-14.5); White Blood Count 13.2 K/mm3 (4.5-10.0)
[2020-12-23 05:24] LABS: Anion Gap 3 mmol/L (8-16); Blood Urea Nitrogen 13 mg/dL (9-20); Calcium 7.4 mg/dL (8.4-10.2); Carbon Dioxide 24 mmol/L (22-30); Chloride 112 mmol/L (98-107); Estimated CRCL calculation 56 ml/min; Estimated Glomerular Filt Rate > 60; Glucose 107 mg/dL (75-110); Magnesium 1.4 mg/dL (1.6-2.3); Phosphorus 2.6 mg/dL (2.5-4.5); Potassium 3.9 mmol/L (3.4-5.0); Sodium 139 mmol/L (137-145)
--- NOTE | 2020-12-23 06:54 | PC.NURSE ---
Lab called twice to report the same positive blood cultures. Dr. Reynolds is aware of the results, no new orders.
[2020-12-23] MEDS: ENOXAPARIN 40 MG/0.4 ML SYRINGE SUB-Q (09:08)
[2020-12-23] MEDS: MAGNESIUM OXIDE 400 MG TABLET PO (09:08)
[2020-12-23] MEDS: MAGNESIUM SULF 2 GM/WATER 50ML 2 GM/50 ML BAG IVPB (09:08)
[2020-12-23] MEDS: SODIUM CHLORIDE 0.9% IV 1,000 ML 100 ML IV CONT ×2 (10:53→20:42)
--- NOTE | 2020-12-23 11:48 | ECG_ITS ---
Measurements Intervals [place] Rate: 104 P: 32 VA: 166 QRS: -30 QRSD: 82 T: 20 QT: 351 QTc: 463 Interpretive Statements ATRIAL FIBRILLATION WITH RAPID VENTRICULAR RESPONSE CHANGES TO SINUS TACHYCARDIA ATRIAL PREMATURE COMPLEXES INCOMPLETE RIGHT BUNDLE BRANCH BLOCK LOW QRS VOLTAGE IN PRECORDIAL LEADS BORDERLINE T WAVE ABNORMALITY- ANT/INF LEADS BASELINE ARTIFACT- I, II, AVR, AVF, V6 ABNORMAL ECG Electronically Signed On 12-23-2020 12:21:48 SHIPYARD SUPERVISOR by Heri Ovalle D.O.
[2020-12-23 12:52] LABS: Anion Gap 1 mmol/L (8-16); Blood Urea Nitrogen 13 mg/dL (9-20); Calcium 7.7 mg/dL (8.4-10.2); Carbon Dioxide 27 mmol/L (22-30); Chloride 111 mmol/L (98-107); Estimated CRCL calculation 61 ml/min; Estimated Glomerular Filt Rate > 60; Glucose 136 mg/dL (75-110); Potassium 3.6 mmol/L (3.4-5.0); Sodium 139 mmol/L (137-145)
--- NOTE | 2020-12-23 14:25 | PM.IMPN ---
Progress Note: A&P Assessment and Plan (1) Septic shock: Code(s): A41.9 - Sepsis, unspecified organism; R65.21 - Severe sepsis with septic shock Status: Acute Assessment and Plan: 12/23/20 14:25 12/22 patient is 80-year-old male with history of coronary artery disease 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myopathy, major depressive disorder patient was brought emergency depart by his as patient was quite lethargic difficulty with ambulation emergency department patient was in sepsis with tachycardia tachypnea fever and slightly elevated lactic acid, and persistent hypotension despite receiving 30 milliliter/kilogram bolus suspect most likely secondary UTI, patient was placed on IVF patient did not require any pressor and his MAP remained stable, discussed with gis administrator patient is clinically stable will transfer patient out of ICU with telemetry, will continue Rocephin and vancomycin will follow-up on urine and blood culture and further recommendation to follow. 12/23 patient is much more alert and communicating, his blood pressure is welcome, denies any chest pain shortness of breath palpitation fever, urine culture is pending, 1 of the blood culture bottle is growing Proteus mirabilis currently patient is being treated with Rocephin and vancomycin will continue follow-up on blood and urine culture and further recommendation to follow, today while working with physical therapy on telemetry patient and abnormal rhythm EKG showed atrial fibrillation rate is close to 100 patient is clinically stable will consult his staffing consultant further recommendation. (2) UTI (urinary tract infection): Code(s): N39.0 - Urinary tract infection, site not specified Status: Acute Assessment and Plan: Patient is being treated with Rocephin will follow-up on urine culture and sensitivity (3) Acute encephalopathy: Code(s): G93.40 - Encephalopathy, unspecified Status: Acute Assessment and Plan: Most likely metabolic related to severe sepsis and UTI patient clinically symptoms are improving (4) HOCM (hypertrophic obstructive cardiomyopathy): Code(s): I42.1 - Obstructive hypertrophic cardiomyopathy Status: Acute Assessment and Plan: Patient clinically stable (5) Cognitive attention deficit: Code(s): R41.840 - Attention and concentration deficit Status: Acute Assessment and Plan: Remains clinically stable will continue to monitor (6) CAD in [place] artery: Code(s): I25.10 - Atherosclerotic heart disease of [place] coronary artery without angina pectoris Status: Acute Assessment and Plan: No complaint of chest pain (7) Mixed hyperlipidemia: Code(s): E78.2 - Mixed hyperlipidemia Status: Acute Assessment and Plan: Will continue home regimen (8) H/O: HTN (hypertension): Code(s): Z86.79 - Personal history of other diseases of the circulatory system Status: Acute Assessment and Plan: Will continue home regimen and monitor Subjective Date/time seen: 12/23/20 14:25 12/22 patient is 80-year-old male with history of coronary artery disease 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myopathy, major depressive disorder patient was brought emergency depart by his as patient was quite lethargic difficulty with ambulation emergency department patient was in sepsis with tachycardia tachypnea fever and slightly elevated lactic acid, and persistent hypotension despite receiving 30 milliliter/kilogram bolus suspect most likely secondary UTI, patient was placed on IVF patient did not require any pressor and his MAP remained stable, discussed with gis administrator patient is clinically stable will transfer patient out of ICU with telemetry, will continue Rocephin and vancomycin will follow-up on urine and blood culture and further
--- NOTE | 2020-12-23 15:50 | WPDURCON ---
Assessment and Plan Assessment and plan (1) Enlarged prostate without lower urinary tract symptoms (luts): Code(s): N40.0 - Benign prostatic hyperplasia without lower urinary tract symptoms Status: Acute Assessment and Plan: He has been maintained on Proscar. Review of office notes states he has had a adequate response to Proscar in terms of urinary symptoms. CT scan shows prostatic enlargement. He has not had retention in the past. His Dill catheter is set to be removed today I will ask the nurses to perform a bladder scan for postvoid residual urine once he voids on his (2) Severe sepsis: Code(s): A41.9 - Sepsis, unspecified organism; R65.20 - Severe sepsis without septic shock Status: Acute Assessment and Plan: Blood culture shows Proteus. Urine culture pending Urology Consult Note HPI Date Seen: 12/23/20 Requesting Physician: Devyn Reynolds MD Primary Care Provider: Ariel Garrett MD Consult Narrative Narrative: Devyn Candelario is a 80 year old male who is admitted with a cardiac arrest. He was found to be septic. His blood cultures are growing out Proteus. No urine culture was done at the time of admission. His urinalysis was not gross positive but did have a few white cells along with squamous epithelial cells and mucus which could be contamination or infection. A urine culture is now pending. He has the indwelling Dill currently. I talked to the patient and his son. The son states he voids on his own at home. The patient confirms this. He denies a slow urinary stream. I will admit he is likely a poor historian at this time. His mostly cares for him but she is not present. He has been maintained by Dr Ortega on Proscar. He has not had urinary retention. His last documented residual urine was 180 cc in July of 2020. He is out of the intensive care unit on the floor. His Dill catheter will be discontinued. Review of Systems Review of Systems: All systems reviewed & are unremarkable except as noted in HPI and below PMFSH Past Medical History Medical History CAD in [place] artery Cognitive attention deficit Enlarged prostate without lower urinary tract symptoms (luts) H/O: HTN (hypertension) History of sudden cardiac arrest HOCM (hypertrophic obstructive cardiomyopathy) Major depressive disorder with single episode, in full remission Mixed hyperlipidemia Surgical History Surgical History S/P drug eluting coronary stent placement Family History Family History Mother Family history of dementia Family history of Alzheimer's disease Father Patient's father is Family history of throat cancer Other Family history of arthritis Family history of cardiovascular disease Hypertension Social History Social History Smoking packs per day: 3 Smoking cigarettes per day: 60.0 Years smoked: 15 Smoking pack-years: 45.00 Smoking status: Never smoker Tobacco type: cigarettes Second hand tobacco smoke exposure: No Smoking end date: 10/25/78 Alcohol intake: never Substance use: never Gender identity (if verbalized by the patient): Male Spiritual care concerns: No Meds Home Medications and Allergies Home Medications Medication Instructions Recorded Confirmed Type aspirin 81 mg tablet,delayed 81 mg PO DAILY 09/12/19 12/22/20 History release metoprolol tartrate 25 mg tablet 25 mg PO BID #180 tablet 03/26/20 12/22/20 Rx cetirizine 10 mg capsule 10 mg PO DAILY cap 04/11/20 12/22/20 History omega 2-oqq-lhq-fish oil 1,000 mg 1 cap PO DAILY 04/11/20 12/22/20 History (120 mg-180 mg) capsule lisinopril 2.5 mg tablet 2.5 mg PO DAILY #90 tablet 10/10/20 12/22/20 Rx atorvastatin 40 mg PO HS 12/22/20 02
--- NOTE | 2020-12-23 16:28 | PM.CNCAR ---
Assessment and Plan Assessment and plan (1) UTI (urinary tract infection): Code(s): N39.0 - Urinary tract infection, site not specified Status: Acute (2) Severe sepsis: Code(s): A41.9 - Sepsis, unspecified organism; R65.20 - Severe sepsis without septic shock Status: Acute (3) CAD in [place] artery: Code(s): I25.10 - Atherosclerotic heart disease of [place] coronary artery without angina pectoris Status: Acute (4) History of sudden cardiac arrest: Code(s): Z86.74 - Personal history of sudden cardiac arrest Status: Acute (5) Mixed hyperlipidemia: Code(s): E78.2 - Mixed hyperlipidemia Status: Acute (6) PAF (paroxysmal atrial fibrillation): Code(s): I48.0 - Paroxysmal atrial fibrillation Status: Acute Assessment and Plan: Start Amiodarone 200 mg PO BID for PAF and NSVT. Check EKG QT interval in AM. If he has recurrence of PAF, then will start anticoagulation. (7) NSVT (nonsustained ventricular tachycardia): Code(s): I47.2 - Ventricular tachycardia Status: Acute History of Present Illness History of Present Illness Consult date/time: 12/23/20 16:28 Reason for consult: PAF. 80 yr old man who is my regular cardiology patient who presents to hospital on 12/22/20 with altered mental status and found to have UTI, sepsis. He has a history of sudden cardiac arrest (he went to bed on 01/08/19 and at 4:30 am his noted he was not moving or breathing. EMS called and they worked on him for 15 minutes. He was taken to [facility] and in coma for 4 days. Had cath and received 4 stents. He has residual memory issues.), CAD, hypertension, dyslipidemia. He is seen on 2nd medical floor. He was transferred out of ICU and did not require vasopressors. On telemetry it was noted he was having rapid atrial fibrillation and 3-5 beat NSVT. Currently he is back in sinus rhythm. Denies chest pain, sob, palpitations. Blood cultured proteus mirabilus. Has DEJESUS and can walk about 75 feet with physical therapy with a walker and has chronic lower extremity weakness. CARDIOVASCULAR PROCEDURES MOWING MACHINE OPERATOR: Cath ([facility]: LAD 25-30% mid stenosis, OM1 99%, distal LCx 80%, RCA minor plaques; PEARL to OM1 and distal LCx.) - 01/23/2019 ECHO/MUGA: 04/30/20 Echo: EF 60-65%, mild LVH, grade I diastolic dysfunction (E/e' 13), trace TR. Echo (TDS, hyperdynamic LV systolic function, diastolic dysfunction, mid cavitary LV obstruction with 40-50 mmHg gradient.) - 01/16/2019 ELECTROPHYSIOLOGY: 08/19/20 EKG: Sinus rhythm, RSR', inferior infarct, age indeterminate. EKG (Sinus rhythm.) - 04/06/2019 08/19/20 CT brain: Normal. 08/19/20 CXR: Normal. Reason For Visit: Shock, UTI Review of Systems Review of Systems: All systems reviewed & are unremarkable except as noted in HPI and below Constitutional: Constitutional: Reports as per HPI, Denies chills and Denies fatigue Cardiovascular: Cardiovascular: Reports as per HPI, Denies chest pain, Denies leg edema and Denies lightheadedness Respiratory: Respiratory: Reports as per HPI and Denies dyspnea Gastrointestinal: Gastrointestinal: Reports as per HPI and Denies abdominal pain Genitourinary: Genitourinary: Reports as per HPI and Denies dysuria Musculoskeletal: Musculoskeletal: Reports as per HPI Neurologic: Reports as per HPI, Denies dizziness and Denies syncope [facility] Past Medical History Medical History 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 Enlarged prostate without lower urinary tract symptoms (luts) H/O: HTN (hypertension) History of sudden cardiac arrest HOCM (hypertrophic obstructive cardiomyopathy) Major depressive disorder with single episode, in full remission Mixed hyperlipidemia Surgical History Surgical History S/P drug eluting coronary stent placement Family History Family History (Reviewed 12/23/20 @
[2020-12-23] MEDS: POTASSIUM CHLORIDE 20 MEQ TABLET 40 MEQ PO (17:45)
[2020-12-23] MEDS: AMIODARONE HCL 200 MG TABLET PO (17:45)
[2020-12-24] VITALS (11 sets, daily range): BP systolic 104–121; BP diastolic 57–79; PULSE 67–91; RESP 16–20; TEMP 36.1–36.8; O2SAT 96–98
--- NOTE | 2020-12-24 | ECHO_ITS ---
Patient Info Name: Devyn Candelario Age: 80 years : 1940 Gender: Male Ht: 70 in Wt: 204 lbs BSA: 2.16 m2 HR: 67 bpm BP: 121 / 79 mmHg Technical Quality: Good Exam Date: 12/24/2020 11:58 AM Exam Location: [facility] Patient Status: Inpatient Admit Date: 12/22/2020 Staff Ordering Physician: Heri Ovalle DO Histologist Technologist: Darrin Fierro, LUNA, RT Attending Provider: Deyvn Reynolds MD Referring Physician: Vasquez ADAMES; Exam Type: CA echo doppler color flow Study Info Indications I47.2 - Ventricular tachycardia Complete two-dimensional, color flow and Doppler transthoracic echocardiogram is performed. Strain analysis performed. Summary 1. Complete two-dimensional, color flow and Doppler transthoracic echocardiogram is performed. 2. Left ventricular chamber dimension is normal. 3. Ventricular septum is sigmoid shaped. 4. Left ventricular systolic function is normal, estimated at 60-65%. 5. The left ventricular diastolic function is grade I diastolic dysfunction. 6. E/e' 13 is mildly elevated. 7. Global longitudinal strain is normal at -17.5%. 8. There is trace mitral valve regurgitation. Left Ventricle Ventricular septum is sigmoid shaped. E/e' 13 is mildly elevated. Global longitudinal strain is normal at -17.5%. Left ventricular chamber dimension is normal. Left ventricular systolic function is normal, estimated at 60-65%. The left ventricular diastolic function is grade I diastolic dysfunction. Right Ventricle Moderator band is normal variant. Right ventricular chamber dimension is normal. Right ventricular systolic function is normal. Left Atria Left atrial chamber dimension is normal. Right Atria Right atrial chamber dimension is normal. Aortic Valve The aortic valve is trileaflet. There is no aortic valve stenosis. There is no aortic valve regurgitation. Pulmonic Valve There is no pulmonic regurgitation. Mitral Valve There is no mitral valve stenosis. There is trace mitral valve regurgitation. Tricuspid Valve There is no tricuspid valve regurgitation. Pericardium/Pleural There is no pericardial effusion. Inferior Vena Cava Normal inferior vena cava with >50% collapse upon inspiration consistent with normal right atrial pressure, 5 mmHg. Aorta The aortic root size at the sinus of Valsalva is normal. Left Ventricular Outflow Tract Name Value Normal LVOT 2D LVOT Diameter 2.0 cm LVOT Doppler LVOT Peak Gradient 2 mmHg LVOT Mean Gradient 1 mmHg LVOT VTI 16 cm LVOT VTI/AV VTI Ratio 0.7 LVOT Stroke Volume 51 ml LVOT CO 3.5 l/min LVOT CI 1.6 l/min/m2 Mitral Valve Name Value Normal MV Doppler
[2020-12-24 05:36] LABS: Hemoglobin 12.6 g/dL (14.0-18.0); Mean Corpuscular HGB Conc 33.2 g/dl (32-36); Mean Corpuscular Hemoglobin 28.4 pg (26-34); Mean Corpuscular Volume 85.8 fl (80-100); Mean Platelet Volume 9.2 fl (7.4-10.4); Platelet Count Result 121 k/mm3 (150-375); Red Blood Count 4.43 M/mm3 (4.6-6.20); Red Cell Distribution Width 15.9 % (11.5-14.5); White Blood Count 9.1 K/mm3 (4.5-10.0)
[2020-12-24 05:52] LABS: Anion Gap 2 mmol/L (8-16); Blood Urea Nitrogen 13 mg/dL (9-20); Calcium 7.1 mg/dL (8.4-10.2); Carbon Dioxide 25 mmol/L (22-30); Chloride 112 mmol/L (98-107); Estimated CRCL calculation 61 ml/min; Estimated Glomerular Filt Rate > 60; Glucose 102 mg/dL (75-110); Magnesium 1.8 mg/dL (1.6-2.3); Potassium 4.5 mmol/L (3.4-5.0); Sodium 139 mmol/L (137-145)
--- NOTE | 2020-12-24 07:06 | ECG_ITS ---
Measurements Intervals [place] Rate: 69 P: 46 CA: 171 QRS: -26 QRSD: 71 T: 11 QT: 422 QTc: 454 Interpretive Statements SINUS RHYTHM ATRIAL PREMATURE COMPLEX INCOMPLETE RIGHT BUNDLE BRANCH BLOCK LOW QRS VOLTAGE IN PRECORDIAL LEADS CONSIDER INFERIOR INFARCT, AGE INDETERMINATE BASELINE ARTIFACT- I, II, III, AVR, AVL, V1 ABNORMAL ECG Electronically Signed On 12-24-2020 13:09:01 DEPUTY INSURANCE COMMISSIONER by Heri Ovalle D.O.
--- NOTE | 2020-12-24 07:35 | PM.PNCARD ---
Progress Note: A&P Assessment and Plan (1) UTI (urinary tract infection): Code(s): N39.0 - Urinary tract infection, site not specified Status: Acute Assessment and Plan: On antibiotics. Managed by hospitalist. (2) Severe sepsis: Code(s): A41.9 - Sepsis, unspecified organism; R65.20 - Severe sepsis without septic shock Status: Acute Assessment and Plan: Resolved. (3) CAD in [place] artery: Code(s): I25.10 - Atherosclerotic heart disease of [place] coronary artery without angina pectoris Status: Acute Assessment and Plan: Stable. Resume cardiac home medications. Will resume Lisinopril if hemodynamics remain stable. (4) History of sudden cardiac arrest: Code(s): Z86.74 - Personal history of sudden cardiac arrest Status: Acute (5) Mixed hyperlipidemia: Code(s): E78.2 - Mixed hyperlipidemia Status: Acute (6) PAF (paroxysmal atrial fibrillation): Code(s): I48.0 - Paroxysmal atrial fibrillation Status: Acute Assessment and Plan: Start Amiodarone 200 mg PO BID for PAF and NSVT on 12/23/20. Check EKG QT interval in AM. If he has recurrence of PAF, then will start anticoagulation. (7) NSVT (nonsustained ventricular tachycardia): Code(s): I47.2 - Ventricular tachycardia Status: Acute Assessment and Plan: Had intermittent 3-5 beat NSVT. Started on Amiodarone loading. (8) PAT (paroxysmal atrial tachycardia): Code(s): I47.1 - Supraventricular tachycardia Status: Acute Assessment and Plan: Had short run of PAT on 12/24/20. Subjective Date/time seen: 12/24/20 07:35 Denies chest pain or sob or any complaints. Exam Const: General: cooperative, healthy appearing and comfortable Resp: Auscultation: clear to auscultation bilaterally, no crackles, no rales, no rhonchi and no wheezes Cardio: Jugular venous distension: no JVD Rate: regular rate Rhythm: regular rhythm Heart sounds: no murmurs Peripheral pulses: dorsalis pedis present GI: GI Palp: No abdominal tenderness and Yes Soft to palpation Neuro: General: oriented to person, oriented to place and oriented to time Extrem: Right lower extremity: no edema Left lower extremity: no edema Objective Data Vital Signs Vital Signs: Vital Signs - 24 hr 12/23/20 08:00 12/23/20 10:00 12/23/20 12:00 Temperature 97.3 F L Pulse Rate 97 90 103 H Respiratory Rate 16 Blood Pressure 113/58 L Pulse Oximetry 93 12/23/20 14:00 12/23/20 16:00 12/23/20 17:45 Temperature 97.3 F L Pulse Rate 89 88 88 Respiratory Rate 16 Blood Pressure 105/64 Pulse Oximetry 97 12/23/20 18:00 12/23/20 20:00 12/23/20 22:00 Temperature 97 F L 97.2 F L Pulse Rate 98 84 81 Respiratory Rate 18 18 20 Blood Pressure 134/66 122/62 Pulse Oximetry 99 99 96 12/23/20 22:51 12/24/20 00:07 12/24/20 04:04 Temperature Pulse Rate 87 91 90 Respiratory Rate Blood Pressure 134/80 Pulse Oximetry 97 12/24/20 05:09 Temperature 97.4 F L Pulse Rate 87 Respiratory Rate 20 Blood Pressure 121/79 Pulse Oximetry 98 Intake/Output Intake/Output: Intake & Output 12/21/20 12/22/20 12/23/20 12/24/20 23:59 23:59 23:59 23:59 Intake Total 100 6330 2650 240 Output Total 750 2950 300 Balance 100 5580 -300 -60 Meds/Results Medications: Active Medications Generic Name Dose Route Start Last Admin Trade Name Freq PRN Reason Stop Dose Admin Acetaminophen 650 mg 12/22/20 05:00 Acetaminophen 325 Mg Tablet PO Q4H PRN Mild Pain (1-3) or Fever Amiodarone HCl 200 mg 12/23/20 17:00 12/23/20 17:45 Amiodarone Hcl 200 Mg Tablet PO 200 mg BID [facility] Administration Aspirin 81 mg 12/24/20 09:00 Aspirin 81 Mg Enteric Tablet PO QAM [facility] Atorvastatin Calcium 40 mg 12/24/20 09:00 Atorvastatin 40 Mg Tablet PO DAILY [facility] Enoxaparin Sodium 40 mg 12/23/20 09:00 12/23/20 09:08 Enoxaparin 40 Mg/0.4 Ml
[2020-12-24] MEDS: ENOXAPARIN 40 MG/0.4 ML SYRINGE SUB-Q (08:14)
[2020-12-24] MEDS: AMIODARONE HCL 200 MG TABLET PO ×2 (08:14→17:46)
[2020-12-24] MEDS: MAGNESIUM OXIDE 400 MG TABLET PO (08:15)
[2020-12-24] MEDS: SODIUM CHLORIDE 0.9% IV 1,000 ML 100 ML IV CONT ×2 (08:18→20:00)
[2020-12-24] MEDS: MAGNESIUM SULF 2 GM/WATER 50ML 2 GM/50 ML BAG IVPB (08:21)
[2020-12-24] MEDS: METOPROLOL TARTRATE 12.5 MG TABLET PO (08:46)
[2020-12-24] MEDS: ATORVASTATIN 40 MG TABLET PO (08:46)
[2020-12-24] MEDS: ASPIRIN 81 MG ENTERIC TABLET PO (08:46)
--- NOTE | 2020-12-24 14:19 | PM.IMPN ---
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myopathy, major depressive disorder patient was brought emergency depart by his as patient was quite lethargic difficulty with ambulation emergency department patient was in sepsis with tachycardia tachypnea fever and slightly elevated lactic acid, and persistent hypotension despite receiving 30 milliliter/kilogram bolus suspect most likely secondary UTI, patient was placed on IVF patient did not require any pressor and his MAP remained stable, discussed with dough sheeter patient is clinically stable will transfer patient out of ICU with telemetry, will continue Rocephin and vancomycin will follow-up on urine and blood culture and further recommendation to follow. 12/23 patient is much more alert and communicating, his blood pressure is welcome, denies any chest pain shortness of breath palpitation fever, urine culture is pending, 1 of the blood culture bottle is growing Proteus mirabilis currently patient is being treated with Rocephin and vancomycin will continue follow-up on blood and urine culture and further recommendation to follow, today while working with physical therapy on telemetry patient and abnormal rhythm EKG showed atrial fibrillation rate is close to 100 patient is clinically stable will consult his stage technician further recommendation. 12/23 today patient sitting in the chair eating his breakfast states feeling much better denies any chest pain shortness of breath palpitation fever or chills, patient blood culture is growing Proteus mirabilis sensitive to Rocephin, patient will need total of 10 days of IV antibiotic 01/01, urine culture no growth so far, patient with a proximal atrial fibrillation and NSVT was seen by his stage technician and started the patient on amiodarone 200 mg b.i.d. and continued metoprolol and lisinopril, patient remains clinically stable will monitor patient telemetry, once okay with his stage technician will do the discharge planning possibly in 2 days. (2) UTI (urinary tract infection): Code(s): N39.0 - Urinary tract infection, site not specified Status: Acute Assessment and Plan: Patient is being treated with Rocephin will follow-up on urine culture and sensitivity (3) Acute encephalopathy: Code(s): G93.40 - Encephalopathy, unspecified Status: Acute Assessment and Plan: Most likely metabolic related to severe sepsis and UTI patient clinically symptoms are improving (4) HOCM (hypertrophic obstructive cardiomyopathy): Code(s): I42.1 - Obstructive hypertrophic cardiomyopathy Status: Acute Assessment and Plan: Patient clinically stable (5) Cognitive attention deficit: Code(s): R41.840 - Attention and concentration deficit Status: Acute Assessment and Plan: Remains clinically stable will continue to monitor (6) CAD in [place] artery: Code(s): I25.10 - Atherosclerotic heart disease of [place] coronary artery without angina pectoris Status: Acute Assessment and Plan: No complaint of chest pain (7) Mixed hyperlipidemia: Code(s): E78.2 - Mixed hyperlipidemia Status: Acute Assessment and Plan: Will continue home regimen (8) H/O: HTN (hypertension): Code(s): Z86.79 - Personal history of other diseases of the circulatory system Status: Acute Assessment and Plan: Will continue home regimen and monitor Subjective Date/time seen: 12/24/20 14:19 12/22 patient is 80-year-old male with history of coronary artery disease 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
[2020-12-24 19:09] LABS: SARS-CoV-2 RNA PCR Negative
[2020-12-24 20:31] LABS: Vancomycin Trough 8.9 ug/mL (10.0-20.0)
[2020-12-25] VITALS (13 sets, daily range): BP systolic 113–138; BP diastolic 60–75; PULSE 63–78; RESP 16–20; TEMP 36.1–36.7; O2SAT 95–98
[2020-12-25 05:37] LABS: Hematocrit 39.8 % (42.0-52.0); Hemoglobin 13.1 g/dL (14.0-18.0); Immature Platelet Fraction Pct 2.2 % (0.9-11.2); Mean Corpuscular HGB Conc 32.9 g/dl (32-36); Mean Corpuscular Hemoglobin 28.4 pg (26-34); Mean Corpuscular Volume 86.1 fl (80-100); Mean Platelet Volume 9.1 fl (7.4-10.4); Platelet Count Result 137 k/mm3 (150-375); Red Blood Count 4.62 M/mm3 (4.6-6.20); White Blood Count 6.8 K/mm3 (4.5-10.0)
[2020-12-25 05:45] LABS: Anion Gap 0 mmol/L (8-16); Blood Urea Nitrogen 12 mg/dL (9-20); Calcium 7.4 mg/dL (8.4-10.2); Carbon Dioxide 26 mmol/L (22-30); Chloride 111 mmol/L (98-107); Estimated CRCL calculation 61 ml/min; Estimated Glomerular Filt Rate > 60; Glucose 86 mg/dL (75-110); Magnesium 1.9 mg/dL (1.6-2.3); Potassium 4.3 mmol/L (3.4-5.0); Sodium 137 mmol/L (137-145)
[2020-12-25] MEDS: SODIUM CHLORIDE 0.9% IV 1,000 ML 100 ML IV CONT ×2 (06:43→17:39)
--- NOTE | 2020-12-25 07:14 | ECG_ITS ---
Measurements Intervals [place] Rate: 66 P: 38 IA: 168 QRS: -34 QRSD: 88 T: 7 QT: 445 QTc: 467 Interpretive Statements SINUS RHYTHM INCOMPLETE RIGHT BUNDLE BRANCH BLOCK DELAYED PRECORDIAL R/S TRANSITION LOW QRS VOLTAGE IN PRECORDIAL LEADS CONSIDER INFERIOR INFARCT, AGE INDETERMINATE BASELINE ARTIFACT- I, III, AVR, AVL, AVF, V1-V3 ABNORMAL ECG Electronically Signed On 12-25-2020 10:20:31 BALANCE WHEEL SCREW HOLE TAPPER by Heri Ovalle D.O.
--- NOTE | 2020-12-25 07:45 | PM.PNCARD ---
Progress Note: A&P Assessment and Plan (1) UTI (urinary tract infection): Code(s): N39.0 - Urinary tract infection, site not specified Status: Acute Assessment and Plan: On antibiotics. Managed by hospitalist. (2) Severe sepsis: Code(s): A41.9 - Sepsis, unspecified organism; R65.20 - Severe sepsis without septic shock Status: Acute Assessment and Plan: Resolved. (3) CAD in [place] artery: Code(s): I25.10 - Atherosclerotic heart disease of [place] coronary artery without angina pectoris Status: Acute Assessment and Plan: Stable. Resume cardiac home medications. Will resume Lisinopril if hemodynamics remain stable. (4) History of sudden cardiac arrest: Code(s): Z86.74 - Personal history of sudden cardiac arrest Status: Acute (5) Mixed hyperlipidemia: Code(s): E78.2 - Mixed hyperlipidemia Status: Acute Assessment and Plan: On statin. (6) PAF (paroxysmal atrial fibrillation): Code(s): I48.0 - Paroxysmal atrial fibrillation Status: Acute Assessment and Plan: Started Amiodarone 200 mg PO BID for PAF and NSVT on 12/23/20. Check EKG QT interval. If he has recurrence of PAF, then will start anticoagulation. (7) NSVT (nonsustained ventricular tachycardia): Code(s): I47.2 - Ventricular tachycardia Status: Acute Assessment and Plan: Had intermittent 3-5 beat NSVT. Had 6 beat NSVT on 12/24/20. Started on Amiodarone loading. (8) PAT (paroxysmal atrial tachycardia): Code(s): I47.1 - Supraventricular tachycardia Status: Acute Assessment and Plan: Had intermittent short runs of PAT. Subjective Date/time seen: 12/25/20 07:45 Denies chest pain or sob. Exam Const: General: cooperative, healthy appearing and comfortable Resp: Auscultation: clear to auscultation bilaterally, no crackles, no rales, no rhonchi and no wheezes Cardio: Jugular venous distension: no JVD Rate: regular rate Rhythm: regular rhythm Heart sounds: no murmurs Peripheral pulses: dorsalis pedis present GI: GI Palp: No abdominal tenderness and Yes Soft to palpation Neuro: General: oriented to person, oriented to place and oriented to time Extrem: Right lower extremity: no edema Left lower extremity: no edema Objective Data Vital Signs Vital Signs: Vital Signs - 24 hr 12/24/20 08:00 12/24/20 08:14 12/24/20 12:00 Temperature Pulse Rate 78 82 70 Respiratory Rate Blood Pressure Pulse Oximetry 12/24/20 14:00 12/24/20 16:00 12/24/20 17:47 Temperature 98.3 F Pulse Rate 69 78 69 Respiratory Rate 16 Blood Pressure 104/74 115/57 L Pulse Oximetry 96 12/24/20 20:00 12/24/20 22:00 12/25/20 00:00 Temperature 96.9 F L Pulse Rate 67 74 70 Respiratory Rate 20 Blood Pressure 111/67 Pulse Oximetry 98 12/25/20 04:00 12/25/20 05:01 Temperature 97 F L Pulse Rate 66 71 Respiratory Rate 20 Blood Pressure 129/75 Pulse Oximetry 97 Intake/Output Intake/Output: Intake & Output 12/22/20 12/23/20 12/24/20 12/25/20 23:59 23:59 23:59 23:59 Intake Total 6330 2650 2950 1240 Output Total 750 2950 500 200 Balance 5580 -300 2450 1040 Meds/Results Medications: Active Medications Generic Name Dose Route Start Last Admin Trade Name Freq PRN Reason Stop Dose Admin Acetaminophen 650 mg 12/22/20 05:00 Acetaminophen 325 Mg Tablet PO Q4H PRN Mild Pain (1-3) or Fever Amiodarone HCl 200 mg 12/23/20 17:00 12/24/20 17:46 Amiodarone Hcl 200 Mg Tablet PO 200 mg BID [facility] Administration Aspirin 81 mg 12/24/20 09:00 12/24/20 08:46 Aspirin 81 Mg Enteric Tablet PO 81 mg QAM [facility] Administration Atorvastatin Calcium 40 mg 12/24/20 09:00 12/24/20 08:46 Atorvastatin 40 Mg Tablet PO 40 mg DAILY [facility] Administration Enoxaparin Sodium 40 mg 12/23/20 09:00 12/24/20 08:14 Enoxaparin 40 Mg/0.4 Ml Syringe SUB-Q 40 mg DAILY [facility] Ad
[2020-12-25] MEDS: METOPROLOL TARTRATE 12.5 MG TABLET PO ×3 (09:13→20:50)
[2020-12-25] MEDS: ASPIRIN 81 MG ENTERIC TABLET PO (09:13)
[2020-12-25] MEDS: AMIODARONE HCL 200 MG TABLET PO ×2 (09:13→17:38)
[2020-12-25] MEDS: MAGNESIUM OXIDE 400 MG TABLET PO (09:13)
[2020-12-25] MEDS: ATORVASTATIN 40 MG TABLET PO (09:13)
[2020-12-25] MEDS: ENOXAPARIN 40 MG/0.4 ML SYRINGE SUB-Q (09:14)
--- NOTE | 2020-12-25 14:18 | PC.NURSE ---
On 12/25/20, the student, [Julieth Ceballos ], provided care and completed Data Symmetry documentation on this patient. I have reviewed the student's documentation and agree with the findings.
--- NOTE | 2020-12-25 14:20 | PM.IMPN ---
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myopathy, major depressive disorder patient was brought emergency depart by his as patient was quite lethargic difficulty with ambulation emergency department patient was in sepsis with tachycardia tachypnea fever and slightly elevated lactic acid, and persistent hypotension despite receiving 30 milliliter/kilogram bolus suspect most likely secondary UTI, patient was placed on IVF patient did not require any pressor and his MAP remained stable, discussed with light adjuster patient is clinically stable will transfer patient out of ICU with telemetry, will continue Rocephin and vancomycin will follow-up on urine and blood culture and further recommendation to follow. 12/23 patient is much more alert and communicating, his blood pressure is welcome, denies any chest pain shortness of breath palpitation fever, urine culture is pending, 1 of the blood culture bottle is growing Proteus mirabilis currently patient is being treated with Rocephin and vancomycin will continue follow-up on blood and urine culture and further recommendation to follow, today while working with physical therapy on telemetry patient and abnormal rhythm EKG showed atrial fibrillation rate is close to 100 patient is clinically stable will consult his intensive care ambulance paramedic further recommendation. 12/24 today patient sitting in the chair eating his breakfast states feeling much better denies any chest pain shortness of breath palpitation fever or chills, patient blood culture is growing Proteus mirabilis sensitive to Rocephin, patient will need total of 10 days of IV antibiotic 01/01, urine culture no growth so far, patient with a proximal atrial fibrillation and NSVT was seen by his intensive care ambulance paramedic and started the patient on amiodarone 200 mg b.i.d. and continued metoprolol and lisinopril, patient remains clinically stable will monitor patient telemetry, once okay with his intensive care ambulance paramedic will do the discharge planning possibly in 2 days. 12/25 today patient laying in the bed, states feeling much better denies any chest pain shortness of breath palpitation fever or chills, patient is seen by Dr. Ovalle and patient with a proximal atrial fibrillation and NSVT and started the patient on amiodarone 200 mg b.i.d. and continued metoprolol and lisinopril, patient heart rate remains clinically stable, the intensive care ambulance paramedic will likely discharge patient home on Holter monitor, blood culture is growing Proteus mirabilis sensitive to Rocephin, patient will need total of 10 days of IV antibiotic 02/01, urine culture no growth so far, patient clinically stable will discharge the patient home tomorrow on IV antibiotics for additional 5 days (2) UTI (urinary tract infection): Code(s): N39.0 - Urinary tract infection, site not specified Status: Acute Assessment and Plan: Patient is being treated with Rocephin will follow-up on urine culture and sensitivity (3) Acute encephalopathy: Code(s): G93.40 - Encephalopathy, unspecified Status: Acute Assessment and Plan: Most likely metabolic related to severe sepsis and UTI patient clinically symptoms are improving (4) HOCM (hypertrophic obstructive cardiomyopathy): Code(s): I42.1 - Obstructive hypertrophic cardiomyopathy Status: Acute Assessment and Plan: Patient clinically stable (5) Cognitive attention deficit: Code(s): R41.840 - Attention and concentration deficit Status: Acute Assessment and Plan: Remains clinically stable will continue to monitor (6) CAD in [place] artery: Code(s): I25.10 - Atherosclerotic heart disea
[2020-12-26 05:00] VITALS: BP 129/74; PULSE 68; RESP 20; TEMP 36.3; O2SAT 95
[2020-12-26 05:43] LABS: Hematocrit 39.8 % (42.0-52.0); Hemoglobin 13.2 g/dL (14.0-18.0); Immature Platelet Fraction Pct 1.8 % (0.9-11.2); Mean Corpuscular HGB Conc 33.2 g/dl (32-36); Mean Corpuscular Hemoglobin 28.1 pg (26-34); Mean Corpuscular Volume 84.9 fl (80-100); Mean Platelet Volume 8.9 fl (7.4-10.4); Platelet Count Result 145 k/mm3 (150-375); Red Blood Count 4.69 M/mm3 (4.6-6.20); Red Cell Distribution Width 15.6 % (11.5-14.5); White Blood Count 6.3 K/mm3 (4.5-10.0)
[2020-12-26 05:53] LABS: Anion Gap 0 mmol/L (8-16); Blood Urea Nitrogen 11 mg/dL (9-20); Calcium 7.6 mg/dL (8.4-10.2); Carbon Dioxide 28 mmol/L (22-30); Chloride 109 mmol/L (98-107); Estimated CRCL calculation 61 ml/min; Estimated Glomerular Filt Rate > 60; Glucose 91 mg/dL (75-110); Magnesium 1.8 mg/dL (1.6-2.3); Potassium 4.1 mmol/L (3.4-5.0); Sodium 137 mmol/L (137-145)
[2020-12-26 08:14] VITALS: O2SAT 95
[2020-12-26] MEDS: LIDOCAINE HCL 1% LOCAL INJ 2 ML AMPUL 5 ML INFILTRATE (09:00)
[2020-12-26] MEDS: ENOXAPARIN 40 MG/0.4 ML SYRINGE SUB-Q (09:44)
[2020-12-26 09:45] VITALS: PULSE 68
[2020-12-26] MEDS: METOPROLOL TARTRATE 12.5 MG TABLET PO (09:45)
[2020-12-26 09:46] VITALS: PULSE 68
[2020-12-26] MEDS: AMIODARONE HCL 200 MG TABLET PO (09:46)
[2020-12-26] MEDS: ATORVASTATIN 40 MG TABLET PO (09:47)
[2020-12-26] MEDS: ASPIRIN 81 MG ENTERIC TABLET PO (09:47)
[2020-12-26] MEDS: MAGNESIUM OXIDE 400 MG TABLET PO (09:47)
--- NOTE | 2020-12-26 13:04 | PM.DS ---
DS: Admitting Diagnosis Admitting Diagnosis Admitting Diagnosis: Chief Complaint: Altered mental status. 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myopathy, major depressive disorder patient was brought emergency depart by his as patient was quite lethargic difficulty with ambulation emergency department patient was in sepsis with tachycardia tachypnea fever and slightly elevated lactic acid, and persistent hypotension despite receiving 30 milliliter/kilogram bolus suspect most likely secondary UTI, patient was placed on IVF patient did not require any pressor and his MAP remained stable, discussed with applications analyst patient is clinically stable will transfer patient out of ICU with telemetry, will continue Rocephin and vancomycin will follow-up on urine and blood culture and further recommendation to follow. 12/23 patient is much more alert and communicating, his blood pressure is welcome, denies any chest pain shortness of breath palpitation fever, urine culture is pending, 1 of the blood culture bottle is growing Proteus mirabilis currently patient is being treated with Rocephin and vancomycin will continue follow-up on blood and urine culture and further recommendation to follow, today while working with physical therapy on telemetry patient and abnormal rhythm EKG showed atrial fibrillation rate is close to 100 patient is clinically stable will consult his manufacturing sr engineer further recommendation. 12/23 today patient sitting in the chair eating his breakfast states feeling much better denies any chest pain shortness of breath palpitation fever or chills, patient blood culture is growing Proteus mirabilis sensitive to Rocephin, patient will need total of 10 days of IV antibiotic 01/01, urine culture no growth so far, patient with a proximal atrial fibrillation and NSVT was seen by his manufacturing sr engineer and started the patient on amiodarone 200 mg b.i.d. and continued metoprolol and lisinopril, patient remains clinically stable will monitor patient telemetry, once okay with his manufacturing sr engineer will do the discharge planning possibly in 2 days. (2) UTI (urinary tract infection): Code(s): N39.0 - Urinary tract infection, site not specified Status: Acute Assessment and Plan: Patient is being treated with Rocephin will follow-up on urine culture and sensitivity (3) Acute encephalopathy: Code(s): G93.40 - Encephalopathy, unspecified Status: Acute Assessment and Plan: Most likely metabolic related to severe sepsis and UTI patient clinically symptoms are improving (4) HOCM (hypertrophic obstructive cardiomyopathy): Code(s): I42.1 - Obstructive hypertrophic cardiomyopathy Status: Acute Assessment and Plan: Patient clinically stable (5) Cognitive attention deficit: Code(s): R41.840 - Attention and concentration deficit Status: Acute Assessment and Plan: Remains clinically stable will continue to monitor (6) CAD in [place] artery: Code(s): I25.10 - Atherosclerotic heart disease of [place] coronary artery without angina pectoris Status: Acute Assessment and Plan: No complaint of chest pain (7) Mixed hyperlipidemia: Code(s): E78.2 - Mixed hyperlipidemia Status: Acute Assessment and Plan: Will continue home regimen (8) H/O: HTN (hypertension): Code(s): Z86.79 - Personal history of other diseases of the circulatory system Status: Acute Assessment and Plan: (2) UTI (urinary tract infection): Code(s): N39.0 - Urinary tract infection, site not specified Status: Resolved Assessment and Plan: Continue IV
== END 2020-12-26 14:20 | disposition home or self-care (01) | DRG 871 ==
LOC: ANHED 23:59 → ANHICU 12-22 03:02 → ANH2MED 12-23 15:20 → ANHICU 12-31 13:51
PROVIDERS: Internal Medicine; Admitting Provider Family Medicine; Emergency Provider Emergency Medicine; PCP Internal Medicine; Visit Provider Family Medicine
DX: A41.9 Sepsis, unspecified organism (principal); R65.21 Severe sepsis with septic shock; G93.41 Metabolic encephalopathy; N39.0 Urinary tract infection, site not specified; I42.1 Obstructive hypertrophic cardiomyopathy; I47.2 Ventricular tachycardia; I47.1 Supraventricular tachycardia; I48.0 Paroxysmal atrial fibrillation; Z20.822 Contact with and (suspected) exposure to COVID-19; R41.840 Attention and concentration deficit; I25.10 Atherosclerotic heart disease of native coronary artery without angina pectoris; E78.2 Mixed hyperlipidemia; I10 Essential (primary) hypertension; F32.5 Major depressive disorder, single episode, in full remission; N40.0 Benign prostatic hyperplasia without lower urinary tract symptoms; Z66 Do not resuscitate; Z79.82 Long term (current) use of aspirin; Z79.899 Other long term (current) drug therapy; Z86.74 Personal history of sudden cardiac arrest; Z95.5 Presence of coronary angioplasty implant and graft
CPT/HCPCS: 36415; 36556; 36569; 36600; 51701; 70450; 71045; 74177; 80048; 80053; 80202; 81001; 82140; 82607; 82746; 82805; 83605; 83735; 84100; 84443; 85025; 85027; 85055; 85610; 85652; 85730; 86140; 87040; 87077; 87086; 87186; 93005; 93306; 96361; 96365; 97110; 97116; 97161; 97165; 97530; 97535; 99285; A9270; C1751; C9803; J0131; J0610; J0696; J1644; J1650; J3370; J3475; J7030; Q9967; U0003; U0005

== ENCOUNTER → 2021-06-12 16:46 | Outpatient (CLI) | payer MEDICARE, SELFPAY ==
--- NOTE | ~2021-06-12 | XR_ITS ---
XR foot RT min 3V DATE: 06/12/2021 17:07 INDICATION: Right lateral foot pain for 2 weeks following a fall, foot injury TECHNIQUE: 4 views COMPARISON: None FINDINGS: There is severe posterior calcaneal enthesopathy. There is mild plantar calcaneal enthesop athy. Mild osteoarthritis at the first metatarsophalangeal joint and multiple interphalangeal joints. IMPRESSION: Osteoarthritis and calcaneal enthesopathy Reviewed, dictated and finalized at location A.
== END ==
PROVIDERS: PCP Internal Medicine; Visit Provider Internal Medicine
DX: M79.671 Pain in right foot (principal); M77.31 Calcaneal spur, right foot; M19.071 Primary osteoarthritis, right ankle and foot
CPT/HCPCS: 73630

== ENCOUNTER 2021-09-20 00:36 | Observation (INO) | payer MEDICARE, SELFPAY ==
[2021-09-20] VITALS (37 sets, daily range): BP systolic 105–157; BP diastolic 52–81; PULSE 67–87; RESP 18–20; TEMP 36.1–37.2; O2SAT 91–98; BMI 28.6
--- NOTE | ~2021-09-20 | XR_ITS ---
XR abdomen obstructive series 09/24/2021 13:27 Indication: Constipation Procedure: Supine and upright views of the abdomen Comparison: 09/21/2021 Findings: There are cholecystectomy clips. There are radiodensities in the left abdomen, possibly bow el content. Nonobstructive bowel gas pattern. Moderate colonic fecal loading. Moderate lumbar spondyl osis with dextrocurvature of the lumbar spine. There are cholecystectomy clips. Impression: 1: Nonobstructive bowel gas pattern. Reviewed, dictated and finalized at location B. DING OPERATOR Impression: 1: Nonobstructive bowel gas pattern.
--- NOTE | ~2021-09-20 | XR_ITS ---
EXAMINATION: XR abdomen NG/feed tube insert INDICATION: Nasogastric tube placement TECHNIQUE: Portable AP KUB-NG at 0320 hours COMPARISON: None available FINDINGS: The nasogastric tube is in the stomach. There is mild atelectasis of the lung bases. The pa rtially imaged stomach is distended. IMPRESSION: 1. Nasogastric tube in the stomach. Reviewed, dictated and finalized at location A. NICAL DEVELOPER
--- NOTE | ~2021-09-20 | XR_ITS ---
EXAMINATION: XR abdomen/kub 1V INDICATION: Stomach distention TECHNIQUE: Supine views of the abdomen were obtained on 2 radiographs. COMPARISON: 09/20/2021 FINDINGS: The nasogastric tube has been removed. No dilated bowel is identified. There is minimal air space opacity of the left lung base. No free intraperitoneal gas is seen. Cholecystectomy clips are n oted. IMPRESSION: 1. No dilated bowel identified. 2. Left basilar airspace opacity, consistent with atelectasis versus pneumonia. Reviewed, dictated and finalized at location A. STRIAL GREEN SYSTEMS DESIGNER
--- NOTE | ~2021-09-20 | XR_ITS ---
EXAMINATION: XR chest 1V portable DATE: 09/24/2021 13:27 INDICATION: Cough TECHNIQUE: frontal view of the chest was obtained. COMPARISON: Chest radiograph dated 09/20/2021 FINDINGS: Significant improvement in the previously seen infrahilar airspace opacities. Minimal residual streak y opacities at the lung base projecting over the diaphragm. No other airspace opacities, pulmonary ed armand, pleural effusion or pneumothorax. Heart size is normal. Left paracardial fat pad projecting over the left costophrenic angle. Visualized bones and soft tissues are unremarkable. IMPRESSION: 1. Interval improvement in prior bilateral infrahilar opacities with residual mild streaky bibasilar atelectasis. Reviewed, dictated and finalized at location A. WARE FIRMWARE ENGINEER IMPRESSION: 1. Interval improvement in prior bilateral infrahilar opacities with residual m ild streaky bibasilar atelectasis.
--- NOTE | ~2021-09-20 | XR_ITS ---
EXAMINATION: XR chest 1V portable INDICATION: Leukocytosis and lactic acidosis, possible aspiration pneumonia TECHNIQUE: Portable AP chest at 1306 hours COMPARISON: 12/22/2020 FINDINGS: There are minimal airspace opacities of the lung bases. No pleural effusion or pneumothorax is identified. The cardiomediastinal silhouette is normal. 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 The nasogastric tube is in the stomach. IMPRESSION: 1. Minimal airspace opacities of the lung bases, likely atelectasis. Reviewed, dictated and finalized at location A. ONS MECHANIC
--- NOTE | ~2021-09-20 | CT_ITS ---
EXAMINATION: CT abdomen pelvis w con INDICATION: Upper abdominal pain, vomiting, diarrhea TECHNIQUE: Computed tomographic images of the abdomen and pelvis were obtained after the administrati on of 100 cc of Omnipaque 350 intravenous contrast. The dose-length product (DLP) was 865.68 mGy-cm. Automated exposure control and iterative reconstruction technique were employed. COMPARISON: 12/22/2020 FINDINGS: Minimal dependent atelectasis is present in the lung bases. The heart size is normal. There is extensive portal venous gas in the left hepatic lobe and minimal portal venous gas in liver segme nt V. Gas is also seen in the main portal vein. The stomach is distended. There is apparent pneumatos is along the greater curvature of the stomach. Gas is seen in the veins adjacent to the greater curva ture of the stomach. The gallbladder is surgically absent. The spleen, pancreas, and adrenal glands a re normal. Cysts of the kidneys measure up to 13 mm on the left. There is a 2 mm nonobstructing stone of the left kidney. There is calcified atherosclerosis of the aorta and many of the other arteries. No pathologically enlarged abdominal or pelvic lymph nodes are identified. There is no free intraperi toneal gas or evidence of bowel obstruction. There is liquid stool in the colon to the level of the r ectum. Mild mucosal enhancement is noted of the rectum. There is a small umbilical hernia containing fat. There is severe lumbar spondylosis. IMPRESSION: 1. Stomach distention with apparent pneumatosis along the greater curvature of stomach, portal venous gas, and venous gas adjacent to the greater curvature of the stomach. Findings are consistent with s tomach ischemia. Surgical evaluation is recommended. 2. Liquid stool in the rectum with mild mucosal enhancement, likely reflecting diarrhea. Reviewed, dictated and finalized at location A. [employer] IMPRESSION: 1. Stomach distention with apparent pneumatosis along the greater curvature of stomach, portal venous gas, and venous gas adjacent to the greater curvature of the stomach. Findings are consistent with stomach ischemia. Surgical evaluatio n is recommended. 2. Liquid stool in the rectum with mild mucosal enhancement, likely reflecting diarrhea.
--- NOTE | 2021-09-20 01:00 | PC.NURSE ---
Pt able to answer correctly for person, place, and month. recalled thanksgiving was recent holiday. a/o x 3 for this RN, although pt's reports that pt unable to answer most questions.
--- NOTE | 2021-09-20 01:03 | ECG_ITS ---
Measurements Intervals [place] Rate: 73 P: 50 VT: 204 QRS: -42 QRSD: 84 T: 29 QT: 397 QTc: 438 Interpretive Statements SINUS RHYTHM BORDERLINE AV CONDUCTION DELAY INCOMPLETE RIGHT BUNDLE BRANCH BLOCK LOW QRS VOLTAGE IN PRECORDIAL LEADS BORDERLINE R WAVE PROGRESSION, ANTERIOR LEADS INFERIOR INFARCT, AGE INDETERMINATE BASELINE ARTIFACT- I, II, III, AVR, AVL, AVF, V3-V6 ABNORMAL ECG Electronically Signed On 09-20-2021 7:16:07 SHRIMP CLEANER by Heri Ovalle D.O.
[2021-09-20] MEDS: ONDANSETRON INJ 4 MG/2 ML VIAL IV PUSH ×3 (01:12→06:13)
[2021-09-20] MEDS: SODIUM CHLORIDE 0.9% IV 1,000 ML 999 ML IV CONT ×2 (01:12→03:53)
[2021-09-20 01:15] LABS: Basophils Percent Auto 0.3 % (0.2-1.2); Eosinophils Percent Auto 0.1 % (0-4.4); Hematocrit 48.1 % (42.0-52.0); Hemoglobin 16.1 g/dL (14.0-18.0); Immature Granulocyte Absolute 0.07 K/mm3 (0.00-0.031); Immature Granulocyte Percent A 0.5 % (0-0.5); Lymphocytes Absolute Auto 1.28 K/mm3 (0.9-3.2); Lymphocytes Percent Auto 8.6 % (18.3-44.2); Mean Corpuscular HGB Conc 33.5 g/dl (32-36); Mean Corpuscular Hemoglobin 29.7 pg (26-34); Mean Corpuscular Volume 88.7 fl (80-100); Mean Platelet Volume 9.4 fl (7.4-10.4); Monocytes Absolute Auto 0.8 K/mm3 (0.1-0.6); Monocytes Percent Auto 5.1 % (2.6-8.5); Neutrophils Absolute Auto 12.8 K/mm3 (1.3-6.7); Neutrophils Percent Auto 85.4 % (45.5-73.1); Platelet Count Result 204 k/mm3 (150-375); Red Blood Count 5.42 M/mm3 (4.6-6.20); Red Cell Distribution Width 16.5 % (11.5-14.5)
--- NOTE | 2021-09-20 01:20 | ED.WEAKNESS ---
HPI - Weakness General Chief complaint: Weakness Stated complaint: Explosive diarrhea, vomiting, weakness Time Seen by Provider: 09/20/21 00:55 Source: family and RN notes reviewed Mode of arrival: wheelchair Limitations: dementia History of Present Illness HPI Narrative: This is a 81 year old male with history of hypertension, CAD, dementia who presents with for evaluation of nausea, vomiting and diarrhea. She states this morning patient seems to be listless, and he developed explosive watery diarrhea at 3 pm this afternoon. He has had 5 episodes today and she denies blood in her stool. They have been giving patient Imodium . He has also had nausea and emesis x 1 day. She has eaten the same things as patient over the past day so she does not think it could be food poisoning. Denies any sick contacts. She denies fever or chills. She also denies any recent falls or head injuries. Patient is oriented to person and place. He denies having nausea, vomiting or diarrhea so poor historian. Related Data Home Medications Medication Instructions Recorded Confirmed lisinopril 2.5 mg PO DAILY 09/20/21 09/20/21 magnesium oxide 400 mg PO DAILY 09/20/21 09/20/21 Allergies Allergy/AdvReac Type Severity Reaction Status Date / Time diazepam Allergy Unknown Unknown Verified 09/20/21 05:58 Review of Systems Review of Systems: All systems reviewed & are unremarkable except as noted in HPI and below PMFSH Past Medical History Medical History (Updated 09/20/21 @ 07:57 by Carolann Thomas MD) CAD in [place] artery Cognitive attention deficit Enlarged prostate without lower urinary tract symptoms (luts) H/O: HTN (hypertension) History of sudden cardiac arrest HOCM (hypertrophic obstructive cardiomyopathy) Major depressive disorder with single episode, in full remission Mixed hyperlipidemia Screen for colon cancer Surgical History Surgical History S/P drug eluting coronary stent placement Family History Family History Mother Family history of dementia Family history of Alzheimer's disease Father Patient's father is Family history of throat cancer Other Family history of arthritis Family history of cardiovascular disease Hypertension Social History Social History Smoking packs per day: 2.5 Smoking cigarettes per day: 50.0 Years smoked: 20 Smoking pack-years: 50.00 Smoking status: Former smoker Tobacco type: cigarettes Alcohol intake: never Substance use: never Gender identity (if verbalized by the patient): Male Spiritual care concerns: No Exam Const: General: no acute distress and alert Eyes: Pupils: Equal, round and reactive pupils present EOM: EOMs intact bilaterally Chest: Chest palpation & inspection: normal inspection of the chest Resp: Effort & Inspection: normal respiratory effort and no retractions Auscultation: clear to auscultation bilaterally Cardio: Rate: regular rate Rhythm: regular rhythm Heart sounds: no murmurs GI: GI Palp: Yes Soft to palpation, Yes Tenderness to palpation present (GI) (RUQ), No Guarding due to palpation present (GI) and No Rigid due to palpation Auscultation: normal bowel sounds Skin: General skin exam: normal color Rashes: no rashes Neuro: General: patient oriented x3, moves all extremities and CN's II-XI intact bilaterally Psych: Mental Status: mental status grossly normal Affect: normal affect Course Reevaluation(s) Reevaluation #1: I discussed with patient's and kids about CT findings. I explained that I have spoke with General surgery and patient will be admitted for IVF and antibiotics. IT is unclear if he will need surgery at some time. Date: 09/20/21 Time: 04:00 Consultations Consultation #1: I discussed case with
[2021-09-20 01:31] LABS: Alanine Aminotransferase 45 U/L (4-50); Albumin Level 4.2 g/dL (3.5-5.1); Alkaline Phosphatase 95 U/L (38-126); Anion Gap 10 mmol/L (8-16); Aspartate Amino Transferase 36 U/L (17-59); Bilirubin,Total 0.6 mg/dL (0.2-1.3); Blood Urea Nitrogen 25 mg/dL (9-20); Calcium 9.3 mg/dL (8.4-10.2); Carbon Dioxide 24 mmol/L (22-30); Chloride 102 mmol/L (98-107); Estimated Glomerular Filt Rate > 60; Glucose 152 mg/dL (65-110); Lipase 63 U/L (23-300); Magnesium 1.8 mg/dL (1.6-2.3); Potassium 4.4 mmol/L (3.4-5.0); Sodium 136 mmol/L (137-145)
--- NOTE | 2021-09-20 01:45 | PC.NURSE ---
Urine sample requested from pt and urinal provided at bedside. pt refused straight cath at this time.
--- NOTE | 2021-09-20 01:54 | PC.NURSE ---
Pt vomiting undigested food and liquid. approx. 200 ml. emesis bag provided. awaiting new orders.
[2021-09-20 02:43] LABS: Add Urine Microscopic? YES; Appearance Urine Cloudy (Clear); Bilirubin Urine Negative (Negative); Blood Urine 2+ (Negative); Color Urine Yellow (Yellow); Glucose Urine UA Negative (Negative); Ketones Urine Negative (Negative); Leukocyte Esterase Ur Negative LEU/UL (Negative); Mucus Urine Few /lpf; Nitrate Urine Negative (Negative); Protein Urine Negative (Negative); Specific Grav Ur 1.023 (1.001-1.035); Squamous Epithelial Cell Urine Occasional /hpf (Few); Urobilinogen Urine Negative mg/dL (<2.0); WBC Urine 0-3 /hpf
[2021-09-20 03:47] LABS: Lactic Acid Reflex 2.9 mmol/L (0.7-2.1)
[2021-09-20] MEDS: SODIUM CHLORIDE 0.9% IV 500 ML 999 ML IV CONT (03:53)
--- NOTE | 2021-09-20 04:05 | PM.IMHP ---
H&P: HPI History of Present Illness Date/Time: 09/20/21 04:05 Chief Complaint: Nausea and vomiting Narrative: This is a 81-year-old male with past medical history significant for dementia, coronary artery disease, benign prostatic hyperplasia, hypertension, HOCM, mixed hyperlipidemia. Patient resides at home with and daughter he has been in his usual state of health he has been following up with his appointments gives me most of the history as patient is unable due to his dementia he has no recollection of the events and does not know exactly why his the hospital he complains about feeling cold and wanting to vomit. According to patient had had a good day today before on till today when he started having diarrhea and vomiting he had several episodes and was brought to the emergency room for evaluation. Upon further questioning the states that he has had unintentional weight loss of up 40 lb in the last 6+ months this has been unintentional and noticed especially today that his abdomen looked protuberant. Preliminary workup in [place] [address] of abdomen and pelvis showed a distended stomach with area of pneumatosis. Patient is been admitted for further evaluation, management and treatment. Review of Systems Review of Systems: ROS unobtainable: Yes unobtainable due to medical condition (Advanced dementia) [facility] Past Medical History Medical History (Updated 09/20/21 @ 05:16 by Lei Sanches MD) CAD in [place] artery Cognitive attention deficit Enlarged prostate without lower urinary tract symptoms (luts) H/O: HTN (hypertension) History of sudden cardiac arrest HOCM (hypertrophic obstructive cardiomyopathy) Major depressive disorder with single episode, in full remission Mixed hyperlipidemia Screen for colon cancer Surgical History Surgical History S/P drug eluting coronary stent placement Family History Family History Mother Family history of dementia Family history of Alzheimer's disease Father Patient's father is Family history of throat cancer Other Family history of arthritis Family history of cardiovascular disease Hypertension Social History Social History Smoking packs per day: 3 Smoking cigarettes per day: 60.0 Years smoked: 15 Smoking pack-years: 45.00 Tobacco type: cigarettes Second hand tobacco smoke exposure: No Smoking end date: 10/25/78 Alcohol intake: never Substance use: never Gender identity (if verbalized by the patient): Male Spiritual care concerns: No Meds Home Medications and Allergies Home Medications Medication Instructions Recorded Confirmed Type cetirizine 10 mg capsule 10 mg PO DAILY cap 04/11/20 05/06/21 History omega 6-fee-pxs-fish oil 1,000 mg 1 cap PO DAILY 04/11/20 05/06/21 History (120 mg-180 mg) capsule aspirin 81 mg tablet,delayed 81 mg PO QAM #90 tablet 02/20/21 05/06/21 Rx release lisinopril 2.5 mg tablet See Rx Instructions .ROUTE 04/10/21 05/06/21 Rx .COMPLEX #90 tablet amiodarone 200 mg tablet 200 mg PO DAILY #180 tablet 05/05/21 05/06/21 Rx levothyroxine 75 mcg tablet 75 mcg PO DAILY #90 tablet 05/07/21 Rx magnesium oxide 400 mg (241.3 mg See Rx Instructions .ROUTE 07/02/21 Rx magnesium) tablet .COMPLEX #90 tablet atorvastatin 40 mg tablet 40 mg PO DAILY #90 tablet 07/03/21 Rx finasteride 5 mg tablet 5 mg PO HS #90 tablet 07/03/21 Rx metoprolol tartrate 25 mg tablet 12.5 mg PO BID #180 tablet 08/08/21 Rx Allergies Allergy/AdvReac Type Severity Reaction Status Date / Time diazepam Allergy Unknown Unknown Verified 09/20/21 00:48 Vital Signs Vital Signs - 24 hr 09/20/21 00:43 09/20/21 00:49 09/20/21 00:54 Temperature 98.4 F Pulse Rate 78 80 76 Respiratory
--- NOTE | 2021-09-20 04:08 | PC.NURSE ---
Per ED MD, NG tube in stomach per x-ray taken for placement. To low, intermittent suction.
[2021-09-20] MEDS: SODIUM CHLORIDE 0.9% IV 1,000 ML 125 ML IV CONT ×3 (04:50→22:27)
[2021-09-20] MEDS: PANTOPRAZOLE SODIUM IV 40 MG VIAL IV PUSH ×2 (04:51→09:57)
--- NOTE | 2021-09-20 05:28 | PC.NURSE ---
Report to L[facility] Ritchie for 344.
--- NOTE | 2021-09-20 05:45 | ADMGEN ---
This patient, Devyn Angeles, was admitted to Medical Room 344-01. Patient/family oriented to hospital policies and general routines including ID bracelet, bed and alarms, visiting hours, pain management, procedures, bathroom and other care routines, personal items, smoking policy, room service/diet, and visiting hours. Information on how to activate the Rapid Response Team has been discussed. Patient/Family are encouraged to report perceived risks to care and to ask questions if they do not understand what they are told or what they should do.
[2021-09-20 06:28] LABS: Reflex Lactic Acid Yes or No Add Lactic
[2021-09-20 08:05] LABS: Lactic Acid 3.2 mmol/L (0.7-2.1)
[2021-09-20] MEDS: LEVOTHYROXINE SODIUM INJ 100 MCG/5 ML VIAL 37.5 MCG IV PUSH (09:55)
--- NOTE | 2021-09-20 10:10 | PM.IMPN ---
Progress Note: A&P Assessment and Plan (1) Nausea & vomiting: Code(s): R11.2 - Nausea with vomiting, unspecified Status: Acute Assessment and Plan: Patient presented to the emergency room from home due to vomiting, diarrhea and abdominal pain which occurred prior to arrival. Lab significant for leukocytosis with elevated neutrophils, lactic acidosis with the lactic of 2.9, increasing at 3.2 this morning, slight dehydration with a creatinine 1.1, BUN 25, normal LFTs, normal lipase. Normal urinalysis without signs of infection. CT abdomen pelvis showed Stomach distention with apparent pneumatosis along the greater curvature of stomach, portal venous gas, and venous gas adjacent to the greater curvature of the stomach. Findings are consistent with stomach ischemia. Surgical evaluation is recommended. discussed with general surgeon who has evaluated the patient and states that this time the patient is hemodynamically stable, not complaining of any abdominal pain, nausea or vomiting. Dr. Michelle believes his pneumatosis is secondary to the vomiting he had been doing. He is unsure of the cause of the portal venous gas. But at this time the patient is not having symptoms if he has acute stomach ischemia. Recommended continuing IV fluids at this time thinking the lactic acidosis secondary to dehydration and vomiting. He will clamp his NG tube and see how the patient feels and may decide to advance diet as tolerated. Liquid stool in the rectum with mild mucosal enhancement, likely reflecting diarrhea. Could be secondary to acute viral illness. Will see if he continues to have diarrhea after he is eating and drinking. He has not had any bowel movement since being in the hospital. Continue IV fluids, continue IV Zosyn due to leukocytosis Will repeat lactic acid level in 4 hours and see if it is trending down Continue monitoring the patient with serial exams, vital signs, and if any worsening symptoms do further labs, imaging to rule out ischemic stomach. Appreciate General surgery input. (2) Lactic acidosis: Code(s): E87.2 - Acidosis Status: Acute Assessment and Plan: Surgery believe secondary to acute dehydration vomiting. Will continue IV fluids at this time. Exam otherwise benign for acute ischemia. Will repeat lactic acid in 4 hours Will continue monitoring closely. (3) Gastric distention: Code(s): K31.89 - Other diseases of stomach and duodenum Status: Acute Assessment and Plan: Patient had NG tube placed due to gastric distension and vomiting. He has good gastric content output through NG tube. Surgery has clamped his NG tube and may advance his diet as tolerated. Appreciate GI and surgery input (4) Leukocytosis: Code(s): D72.829 - Elevated white blood cell count, unspecified Status: Acute Assessment and Plan: Unsure of the underlying infection at this time but due to leukocytosis and lactic acidosis I will continue the IV Zosyn Urinalysis without signs of infection, CT abdomen not stating any significant type of an infection Will obtain a chest x-ray-____- to rule out pneumonia versus aspiration pneumonia Continue monitoring (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 Assessment and Plan: Patient has Dementia Supportive care (6) CAD in [place] artery: Code(s): I25.10 - Atherosclerotic heart disease of [place] coronary artery without angina pectoris Status: Chronic Assessment and Plan: No complaints of chest pain at this time. Stable. Continue to monitor Time Spent With Patient Isaiah
[2021-09-20 10:37] LABS: Basophils Percent Auto 0.2 % (0.2-1.2); Hematocrit 47.5 % (42.0-52.0); Hemoglobin 15.8 g/dL (14.0-18.0); Immature Granulocyte Percent A 0.7 % (0-0.5); Lymphocytes Percent Auto 6.5 % (18.3-44.2); Mean Corpuscular HGB Conc 33.3 g/dl (32-36); Mean Corpuscular Hemoglobin 29.4 pg (26-34); Mean Corpuscular Volume 88.3 fl (80-100); Monocytes Absolute Auto 0.8 K/mm3 (0.1-0.6); Monocytes Percent Auto 5.4 % (2.6-8.5); Neutrophils Absolute Auto 13.3 K/mm3 (1.3-6.7); Neutrophils Percent Auto 87.2 % (45.5-73.1); Platelet Count Result 184 k/mm3 (150-375); Red Blood Count 5.38 M/mm3 (4.6-6.20); Red Cell Distribution Width 16.7 % (11.5-14.5); White Blood Count 15.3 K/mm3 (4.5-10.0)
[2021-09-20 10:58] LABS: Alanine Aminotransferase 42 U/L (4-50); Albumin Level 3.6 g/dL (3.5-5.1); Alkaline Phosphatase 86 U/L (38-126); Anion Gap 5 mmol/L (8-16); Aspartate Amino Transferase 36 U/L (17-59); Bilirubin,Total 0.9 mg/dL (0.2-1.3); Blood Urea Nitrogen 21 mg/dL (9-20); Calcium 8.6 mg/dL (8.4-10.2); Carbon Dioxide 25 mmol/L (22-30); Chloride 106 mmol/L (98-107); Estimated CRCL calculation 49 ml/min; Estimated Glomerular Filt Rate > 60; Glucose 129 mg/dL (65-110); Potassium 4.3 mmol/L (3.4-5.0); Sodium 136 mmol/L (137-145)
--- NOTE | 2021-09-20 11:50 | PM.CNGS ---
Assessment and Plan Assessment and plan (1) Pneumobilia: Code(s): K83.8 - Other specified diseases of biliary tract Status: Acute Assessment and Plan: Unclear etiology, reviewed with radiologist, gastric pneumatosis noted as well, exam benign, no clinical evidence of ischemia (2) Lactic acidosis: Code(s): E87.2 - Acidosis Status: Acute Assessment and Plan: no clinical evidence of ischemia, improved with hydration, continue to trend (3) Gastric distention: Code(s): K31.89 - Other diseases of stomach and duodenum Status: Acute Assessment and Plan: NG decompression, seems chronic after reviewing previous imaging, exam benign, would clamp NG and possibly remove later today History of Present Illness Consult details Consult date: 09/20/21 Reason for consult: abdominal pain Requesting physician: Maddy Alcala PA-C Narrative: The patient is a 81-year-old male with multiple medical issues, including dementia, CAD, presenting to the emergency department with intractable nausea vomiting, abdominal pain, diarrhea. The patient had been in his usual state health prior to this episode. Of note, according to the the patient has had a significant unintentional weight loss over the last few months. Review of Systems Review of Systems: ROS unobtainable: Yes unobtainable due to mental status PMFSH Past Medical History Medical History CAD in [place] artery Cognitive attention deficit Enlarged prostate without lower urinary tract symptoms (luts) H/O: HTN (hypertension) History of sudden cardiac arrest HOCM (hypertrophic obstructive cardiomyopathy) Major depressive disorder with single episode, in full remission Mixed hyperlipidemia Screen for colon cancer Surgical History Surgical History S/P drug eluting coronary stent placement Family History Family History Mother Family history of dementia Family history of Alzheimer's disease Father Patient's father is Family history of throat cancer Other Family history of arthritis Family history of cardiovascular disease Hypertension Social History Social History Smoking packs per day: 2.5 Smoking cigarettes per day: 50.0 Years smoked: 20 Smoking pack-years: 50.00 Smoking status: Former smoker Tobacco type: cigarettes Alcohol intake: never Substance use: never Gender identity (if verbalized by the patient): Male Spiritual care concerns: No Meds Home Medications and Allergies Home Medications Medication Instructions Recorded Confirmed Type amiodarone 200 mg tablet 200 mg PO DAILY #180 tablet 05/05/21 09/20/21 Rx levothyroxine 75 mcg tablet 75 mcg PO DAILY #90 tablet 05/07/21 09/20/21 Rx atorvastatin 40 mg tablet 40 mg PO DAILY #90 tablet 07/03/21 09/20/21 Rx finasteride 5 mg tablet 5 mg PO HS #90 tablet 07/03/21 09/20/21 Rx metoprolol tartrate 25 mg tablet 12.5 mg PO BID #180 tablet 08/08/21 09/20/21 Rx aspirin 81 mg PO DAILY 09/20/21 09/20/21 History lisinopril 2.5 mg PO DAILY 09/20/21 09/20/21 History loratadine [Allergy Relief 10 mg PO HS 09/20/21 09/20/21 History (loratadine)] magnesium oxide 400 mg PO DAILY 09/20/21 09/20/21 History omega-3 fatty acids [Fish Oil] 500 mg PO DAILY 09/20/21 09/20/21 History Allergies Allergy/AdvReac Type Severity Reaction Status Date / Time diazepam Allergy Unknown Unknown Verified 09/20/21 05:58 Vital Signs Vital Signs - 24 hr 09/20/21 00:43 09/20/21 00:49 09/20/21 00:54 Temperature 36.9 C Pulse Rate 78 80 76 Respiratory Rate 20 20 Blood Pressure 119/73 Pulse Oximetry 97 09/20/21 01:29 09/20/21 01:30 09/20/21 01:48 Temperature Pulse Rate 74 74 73 Respiratory Rate Blood Pressure
[2021-09-20 13:08] LABS: Lactic Acid Reflex 1.7 mmol/L (0.7-2.1)
--- NOTE | 2021-09-20 14:08 | WPDGICN ---
Assessment and Plan Assessment and plan (1) Intractable nausea and vomiting: Code(s): R11.2 - Nausea with vomiting, unspecified Status: Acute Assessment and Plan: here after n/v with diarrhea ngt in place reviewed CT scan, surgery on board- concern for pneumatosis but responding to medical treatment now, also on iv abx, NGT in placed and npo status iv protonix may need to assess with egd based on clinical course lactic level coming down (2) Diarrhea: Code(s): R19.7 - Diarrhea, unspecified Status: Acute Assessment and Plan: get stool samples could be gastroenteritis on abx (3) Pneumatosis of intestines: Code(s): K63.89 - Other specified diseases of intestine Status: Acute Assessment and Plan: possible pneumatosis stomach surgery in the case (4) Gastric distention: Code(s): K31.89 - Other diseases of stomach and duodenum Status: Acute Assessment and Plan: may need egd to rule out other conditions (malignancy, ulcer, ischemic changes, etc) (5) Lactic acidosis: Code(s): E87.2 - Acidosis Status: Acute (6) Severe sepsis: Code(s): A41.9 - Sepsis, unspecified organism; R65.20 - Severe sepsis without septic shock Status: Acute Assessment and Plan: on treatment now (7) CAD in [place] artery: Code(s): I25.10 - Atherosclerotic heart disease of [place] coronary artery without angina pectoris Status: Chronic (8) Cognitive attention deficit: Code(s): R41.840 - Attention and concentration deficit Status: Chronic GI Consult Note Consult date/time: 09/20/21 14:08 Reason for consult: n/v, distended stomach, diarrhea HPI: Devyn Angeles is a 81 year old male with past medical history significant for dementia (per had hypoxic event when had heart attack), coronary artery disease, benign prostatic hyperplasia, hypertension. Most of history from records and who is at bedside (he has dementia). He started getting sick after thanksgiving with intractable nausea, vomiting and also diarrhea. Also noted weight loss with protuberant abdomen. His last colonoscopy [address] Ochoa with one polyp removed (reviewed records). [place] [address], CT of abdomen and pelvis reviewed and showed distended stomach with area of pneumatosis. Lactic 3.2 repeat 1.7. Surgery on board. NGT placed. Started on antibiotics. Review of Systems Constitutional: Constitutional: Denies chills Eyes: Eyes: Denies blurry vision ENT: Reports Normal hearing present Cardiovascular: Cardiovascular: Denies chest pain Respiratory: Respiratory: Denies dyspnea Gastrointestinal: Gastrointestinal: Reports abdominal pain, Reports diarrhea, Reports nausea and Reports vomiting Genitourinary: Genitourinary: Denies dysuria Musculoskeletal: Musculoskeletal: Denies neck pain Integumentary/Breasts: Skin/Breast: Denies dry skin Neurologic: Denies headache(s) Psychiatric: Comments: h/o dementia [facility] Past Medical History Medical History (Updated 09/20/21 @ 14:15 by Naeem Vega MD) CAD in [place] artery Cognitive attention deficit Diarrhea Enlarged prostate without lower urinary tract symptoms (luts) H/O: HTN (hypertension) History of sudden cardiac arrest HOCM (hypertrophic obstructive cardiomyopathy) Major depressive disorder with single episode, in full remission Mixed hyperlipidemia Pneumatosis of intestines Screen for colon cancer Surgical History Surgical History S/P drug eluting coronary stent placement Family History Family History Mother Family history of dementia Family history of Alzheimer's disease Father Patient's father is Family history of throat cancer Other Family history of arthritis Family history of cardiovascular disease Hypertension
[2021-09-20] MEDS: ENOXAPARIN 40 MG/0.4 ML SYRINGE SUB-Q (14:25)
[2021-09-21] VITALS (8 sets, daily range): BP systolic 92–129; BP diastolic 50–62; PULSE 68–88; RESP 18; TEMP 36.5–36.8; O2SAT 94–95
[2021-09-21 05:58] LABS: Basophils Percent Auto 0.3 % (0.2-1.2); Eosinophils Absolute Auto 0.1 K/mm3 (0-0.3); Eosinophils Percent Auto 0.7 % (0-4.4); Hematocrit 44.3 % (42.0-52.0); Hemoglobin 14.5 g/dL (14.0-18.0); Immature Granulocyte Absolute 0.06 K/mm3 (0.00-0.031); Immature Granulocyte Percent A 0.5 % (0-0.5); Immature Platelet Fraction Pct 2.4 % (0.9-11.2); Lymphocytes Absolute Auto 2.04 K/mm3 (0.9-3.2); Lymphocytes Percent Auto 16.1 % (18.3-44.2); Mean Corpuscular HGB Conc 32.7 g/dl (32-36); Mean Corpuscular Hemoglobin 30.1 pg (26-34); Mean Corpuscular Volume 91.9 fl (80-100); Mean Platelet Volume 9.6 fl (7.4-10.4); Monocytes Absolute Auto 0.8 K/mm3 (0.1-0.6); Monocytes Percent Auto 6.3 % (2.6-8.5); Neutrophils Absolute Auto 9.6 K/mm3 (1.3-6.7); Neutrophils Percent Auto 76.1 % (45.5-73.1); Platelet Count Result 151 k/mm3 (150-375); Red Blood Count 4.82 M/mm3 (4.6-6.20); White Blood Count 12.7 K/mm3 (4.5-10.0)
[2021-09-21 06:08] LABS: Alanine Aminotransferase 44 U/L (4-50); Albumin Level 3.3 g/dL (3.5-5.1); Alkaline Phosphatase 68 U/L (38-126); Anion Gap 5 mmol/L (8-16); Aspartate Amino Transferase 34 U/L (17-59); Bilirubin,Total 1.9 mg/dL (0.2-1.3); Blood Urea Nitrogen 17 mg/dL (9-20); Calcium 8.2 mg/dL (8.4-10.2); Carbon Dioxide 25 mmol/L (22-30); Chloride 105 mmol/L (98-107); Estimated CRCL calculation 49 ml/min; Estimated Glomerular Filt Rate > 60; Glucose 89 mg/dL (65-110); Potassium 3.9 mmol/L (3.4-5.0); Sodium 135 mmol/L (137-145)
[2021-09-21 06:17] LABS: Lactic Acid Reflex 1.6 mmol/L (0.7-2.1)
[2021-09-21] MEDS: SODIUM CHLORIDE 0.9% IV 1,000 ML 125 ML IV CONT (07:36)
--- NOTE | 2021-09-21 08:33 | PM.PNGS ---
Progress Note: A&P Assessment and Plan (1) Pneumobilia: Code(s): K83.8 - Other specified diseases of biliary tract Status: Acute Assessment and Plan: cont to have benign exams, lactate and labs all unremarkable, will dc NG and start diet, cont abx Subjective Subjective Date/Time Seen: 09/21/21 08:33 feels good, no N/V, NG clamped this am s issue, vladimir sips Review of Systems Review of Systems: All systems reviewed & are unremarkable except as noted in HPI and below Exam Const: General: cooperative, comfortable and no acute distress Resp: Effort & Inspection: normal respiratory effort Auscultation: diminished lung sounds Cardio: Rate: regular rate Rhythm: regular rhythm GI: Inspection: normal to inspection and non-distended GI Palp: Yes Soft to palpation, No Tenderness to palpation present (GI), No Guarding due to palpation present (GI) and No Rigid due to palpation Objective Data Vital Signs Vital Signs: Vital Signs - 24 hr 09/20/21 13:57 09/20/21 14:00 09/20/21 14:24 Temperature 36.9 C 37.2 C 37.2 C Pulse Rate 83 Respiratory Rate 18 Blood Pressure 108/52 L Pulse Oximetry 94 09/20/21 14:54 09/20/21 20:00 09/20/21 21:07 Temperature 37.1 C 36.8 C Pulse Rate 87 67 Respiratory Rate 18 18 Blood Pressure 111/52 L Pulse Oximetry 93 93 09/20/21 22:21 09/21/21 06:00 Temperature 36.8 C Pulse Rate 87 76 Respiratory Rate 18 Blood Pressure 129/58 L Pulse Oximetry 95 Intake/Output Intake/Output: Intake & Output 09/18/21 09/19/21 09/20/21 09/21/21 23:59 23:59 23:59 23:59 Intake Total 4750 1100 Output Total 350 150 Balance 4400 950 Meds/Results Medications: Active Medications Generic Name Dose Route Start Last Admin Trade Name Freq PRN Reason Stop Dose Admin Amiodarone HCl 200 mg 09/20/21 09:00 09/20/21 13:49 Amiodarone Hcl 200 Mg Tablet PO Not Given DAILY [facility] Aspirin 81 mg 09/21/21 08:00 Aspirin 81 Mg Chewable Tablet PO DAILY@0800 [facility] Atorvastatin Calcium 40 mg 09/20/21 09:00 09/20/21 13:49 Atorvastatin 40 Mg Tablet PO Not Given DAILY [facility] Enoxaparin Sodium 40 mg 09/20/21 11:25 09/20/21 14:25 Enoxaparin 40 Mg/0.4 Ml Syringe SUB-Q 40 mg DAILY [facility] Administration Finasteride 5 mg 09/20/21 21:00 09/20/21 22:16 Finasteride 5 Mg Tablet PO Not Given HS [facility] Piperacillin/Tazobactam/Dextrose 3.375 gm in 50 mls @ 100 mls/hr 09/20/21 09:00 09/21/21 07:00 Zosyn 3.375 Gm/D5w 50ml Pm IVPB Infused Q6H [facility] Infusion Sodium Chloride 1,000 mls @ 85 mls/hr 09/20/21 04:30 09/21/21 08:23 Normal Saline Iv IV CONT 85 mls/hr .[id number] [facility] Infusion Levothyroxine Sodium 37.5 mcg 09/20/21 08:05 09/21/21 06:31 Levothyroxine Sodium Inj 100 Mcg/5 Ml Vial IV PUSH Not Given DAILY@0630 [facility] Lisinopril 2.5 mg 09/20/21 09:00 09/20/21 13:49 Lisinopril 2.5 Mg Tablet PO Not Given DAILY [facility] Loratadine 10 mg 09/20/21 21:00 09/20/21 22:17 Loratadine 10 Mg Tablet PO Not Given HS [facility] Magnesium Oxide 400 mg 09/20/21 09:00 09/20/21 13:49 Magnesium Oxide 400 Mg Tablet PO Not Given DAILY [facility] Metoprolol Tartrate 12.5 mg 09/20/21 21:00 09/20/21 22:21 Metoprolol Tartrate 12.5 Mg Tablet PO Not Given Q12HR [facility] Ondansetron HCl 4 mg 09/20/21 04:31 09/20/21 06:13 Ondansetron Inj 4 Mg/2 Ml Vial IV PUSH 4 mg Q4H PRN Administration Nausea Pantoprazole Sodium 40 mg 09/20/21 09:00 09/20/21 09:57 Pantoprazole Sodium Iv 40 Mg Vial IV PUSH 40 mg QAM [facility] Administration Radiology Results: ITS Impressions Abdomen X-Ray 09/20/21 08:25 IMPRESSION: 1. Nasogastric tube in the stomach. Abdomen/Pelvis CT 09/20/21 10:12 IMPRESSION: 1. Stomach distention with apparent pneumatosis along the greater curvature of stomach, portal venous gas, and venous gas adjacent to the greater curvature of the stomach. Findings are consistent with sto
[2021-09-21] MEDS: lisinopriL 2.5 MG TABLET PO (10:00)
[2021-09-21] MEDS: MAGNESIUM OXIDE 400 MG TABLET PO (10:00)
[2021-09-21] MEDS: ASPIRIN 81 MG CHEWABLE TABLET PO (10:00)
[2021-09-21] MEDS: ENOXAPARIN 40 MG/0.4 ML SYRINGE SUB-Q (10:00)
[2021-09-21] MEDS: ATORVASTATIN 40 MG TABLET PO (10:00)
[2021-09-21] MEDS: AMIODARONE HCL 200 MG TABLET PO (10:00)
[2021-09-21] MEDS: PANTOPRAZOLE SODIUM IV 40 MG VIAL IV PUSH (10:01)
[2021-09-21] MEDS: METOPROLOL TARTRATE 12.5 MG TABLET PO ×2 (10:01→20:17)
--- NOTE | 2021-09-21 10:09 | PM.IMPN ---
Progress Note: A&P Assessment and Plan (1) Nausea & vomiting: Code(s): R11.2 - Nausea with vomiting, unspecified Status: Acute Assessment and Plan: Patient presented to the emergency room from home due to vomiting, diarrhea and abdominal pain which occurred prior to arrival. Lab significant for leukocytosis with elevated neutrophils, lactic acidosis with the lactic of 2.9, increasing at 3.2 this morning, slight dehydration with a creatinine 1.1, BUN 25, normal LFTs, normal lipase. Normal urinalysis without signs of infection. CT abdomen pelvis showed Stomach distention with apparent pneumatosis along the greater curvature of stomach, portal venous gas, and venous gas adjacent to the greater curvature of the stomach. Findings are consistent with stomach ischemia. Surgical evaluation is recommended. Discussed with general surgeon who has evaluated the patient and states that this time the patient is hemodynamically stable, not complaining of any abdominal pain, nausea or vomiting. Dr. Michelle believes his pneumatosis is secondary to the vomiting he had been doing. He is unsure of the cause of the portal venous gas. But at this time the patient is not having symptoms if he has acute stomach ischemia. Patient tolerated his NG tube being clamped for 24 hours and not having any complaints at this time. Surgery has removed NG tube and started Clear Liquid diet. GI Dr. Blas evaluated the patient and may consider EGD due to gastric distention causes such as ulcer, malignancy, ischemic changes, etc. Liquid stool in the rectum with mild mucosal enhancement, likely reflecting diarrhea. Could be secondary to acute viral illness.GI recommends stool cultures which are uncollected at this time. Continue IV fluids until he is tolerating a diet without any issues. Unsure the reason for IV Zosyn? No UTI, Pneumonia, must be from GI symptoms it was added on. Will talk to Surgery and GI to see if this is still needed. Leukocytosis is improving Normal lactic acid at this time Continue monitoring the patient with serial exams, vital signs, and if any worsening symptoms do further labs. Appreciate General surgery and GI input. (2) Lactic acidosis: Code(s): E87.2 - Acidosis Status: Acute Assessment and Plan: Surgery believe secondary to acute dehydration vomiting. Will continue IV fluids at this time. Exam otherwise benign for acute ischemia. Repeat lactic acid is normal x2. (3) Gastric distention: Code(s): K31.89 - Other diseases of stomach and duodenum Status: Acute Assessment and Plan: Patient had NG tube placed due to gastric distension and vomiting. He has good gastric content output through NG tube. NG removed and on clear liquid diet. GI may preform EGD depending on how the patient is doing . Appreciate GI and surgery input (4) Leukocytosis: Code(s): D72.829 - Elevated white blood cell count, unspecified Status: Acute Assessment and Plan: Unsure of the underlying infection at this time but due to leukocytosis and lactic acidosis Urinalysis without signs of infection, CT abdomen not stating any significant type of an infection Chest x-ray shows no acute cardiopulmonary changes. 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
--- NOTE | 2021-09-21 11:05 | WPDGIPROGNO ---
Progress Note: A&P Assessment and Plan (1) Gastric distention: Code(s): K31.89 - Other diseases of stomach and duodenum Status: Acute Assessment and Plan: responding to medical treatment abdominal exam benign today will do EGD tomorrow to check if pud, outlet obstruction, ischemic changes, etc (2) Pneumatosis of intestines: Code(s): K63.89 - Other specified diseases of intestine Status: Acute Assessment and Plan: by ct scan and surgery on board (3) Leukocytosis: Code(s): D72.829 - Elevated white blood cell count, unspecified Status: Acute Assessment and Plan: trending down (4) Nausea & vomiting: Code(s): R11.2 - Nausea with vomiting, unspecified Status: Acute Assessment and Plan: resolved (5) Lactic acidosis: Code(s): E87.2 - Acidosis Status: Acute Assessment and Plan: resolved (6) Diarrhea: Code(s): R19.7 - Diarrhea, unspecified Status: Acute Subjective Date/time seen: 09/21/21 11:05 Interval history: ngt removed and tolerating liquid diet, he is comfortable and denies abdominal pain now Review of Systems Review of Systems: All systems reviewed & are unremarkable except as noted in HPI and below Exam Const: General: cooperative, comfortable and no acute distress HENMT: General nose exam: Normal nares present Eyes: Pupils: Equal, round and reactive pupils present Neck: Neck: supple Resp: Effort & Inspection: normal respiratory effort Auscultation: diminished lung sounds Cardio: Rate: regular rate Rhythm: regular rhythm GI: Inspection: normal to inspection and non-distended GI Palp: Yes Soft to palpation, No Tenderness to palpation present (GI), No Guarding due to palpation present (GI) and No Rigid due to palpation Auscultation: normal bowel sounds Skin: General skin exam: no rashes or lesions noted Neuro: Speech: normal speech Other: awake and alert but gets confused Extrem: General: normal to inspection Psych: Affect: normal affect Objective Data Vital Signs Vital Signs: Vital Signs - 24 hr 09/20/21 13:57 09/20/21 14:00 09/20/21 14:24 Temperature 98.5 F 99.0 F 99 F Pulse Rate 83 Respiratory Rate 18 Blood Pressure 108/52 L Pulse Oximetry 94 09/20/21 14:54 09/20/21 20:00 09/20/21 21:07 Temperature 98.7 F 98.3 F Pulse Rate 87 67 Respiratory Rate 18 18 Blood Pressure 111/52 L Pulse Oximetry 93 93 09/20/21 22:21 09/21/21 06:00 09/21/21 10:00 Temperature 98.2 F Pulse Rate 87 76 88 Respiratory Rate 18 Blood Pressure 129/58 L Pulse Oximetry 95 09/21/21 10:01 Temperature Pulse Rate 88 Respiratory Rate Blood Pressure Pulse Oximetry Intake/Output Intake/Output: Intake & Output 09/18/21 09/19/21 09/20/21 09/21/21 23:59 23:59 23:59 23:59 Intake Total 4750 1100 Output Total 350 150 Balance 4400 950 Meds/Results Medications: Active Medications Generic Name Dose Route Start Last Admin Trade Name Freq PRN Reason Stop Dose Admin Amiodarone HCl 200 mg 09/20/21 09:00 09/21/21 10:00 Amiodarone Hcl 200 Mg Tablet PO 200 mg DAILY [facility] Administration Aspirin 81 mg 09/21/21 08:00 09/21/21 10:00 Aspirin 81 Mg Chewable Tablet PO 81 mg DAILY@0800 [facility] Administration Atorvastatin Calcium 40 mg 09/20/21 09:00 09/21/21 10:00 Atorvastatin 40 Mg Tablet PO 40 mg DAILY [facility] Administration Enoxaparin Sodium 40 mg 09/20/21 11:25 09/21/21 10:00 Enoxaparin 40 Mg/0.4 Ml Syringe SUB-Q 40 mg DAILY [facility] Administration Finasteride 5 mg 09/20/21 21:00 09/20/21 22:16 Finasteride 5 Mg Tablet PO Not Given HS [facility] Piperacillin/Tazobactam/Dextrose 3.375 gm in 50 mls @ 100 mls/hr 09/20/21 09:00 09/21/21 10:02 Zosyn 3.375 Gm/D5w 50ml Pm IVPB 100 mls/hr Q6H [facility] Administration Sodium Chloride 1,000 mls @ 85 mls/hr 09/20/21 04:30 09/21/21 08:23 Normal Saline Iv IV CONT 85
[2021-09-21] MEDS: SODIUM CHLORIDE 0.9% IV 1,000 ML 85 ML IV CONT (18:59)
[2021-09-21] MEDS: FINASTERIDE 5 MG TABLET PO (20:17)
[2021-09-21] MEDS: LORATADINE 10 MG TABLET PO (20:17)
[2021-09-22] VITALS (14 sets, daily range): BP systolic 98–146; BP diastolic 50–79; PULSE 65–73; RESP 15–23; TEMP 36.2–37.3; O2SAT 93–100; BMI 28.6
[2021-09-22 06:04] LABS: Basophils Percent Auto 0.4 % (0.2-1.2); Eosinophils Absolute Auto 0.2 K/mm3 (0-0.3); Eosinophils Percent Auto 1.6 % (0-4.4); Hematocrit 36.1 % (42.0-52.0); Immature Granulocyte Absolute 0.06 K/mm3 (0.00-0.031); Immature Granulocyte Percent A 0.6 % (0-0.5); Immature Platelet Fraction Pct 2.2 % (0.9-11.2); Lymphocytes Absolute Auto 1.83 K/mm3 (0.9-3.2); Lymphocytes Percent Auto 17.1 % (18.3-44.2); Mean Corpuscular HGB Conc 33.2 g/dl (32-36); Mean Corpuscular Hemoglobin 30.4 pg (26-34); Mean Corpuscular Volume 91.4 fl (80-100); Mean Platelet Volume 9.4 fl (7.4-10.4); Monocytes Absolute Auto 0.6 K/mm3 (0.1-0.6); Neutrophils Percent Auto 74.3 % (45.5-73.1); Platelet Count Result 133 k/mm3 (150-375); Red Blood Count 3.95 M/mm3 (4.6-6.20); Red Cell Distribution Width 16.9 % (11.5-14.5); White Blood Count 10.7 K/mm3 (4.5-10.0)
[2021-09-22 06:16] LABS: Alanine Aminotransferase 32 U/L (4-50); Albumin Level 2.5 g/dL (3.5-5.1); Alkaline Phosphatase 50 U/L (38-126); Anion Gap 4 mmol/L (8-16); Aspartate Amino Transferase 26 U/L (17-59); Bilirubin,Total 1.3 mg/dL (0.2-1.3); Blood Urea Nitrogen 13 mg/dL (9-20); Calcium 7.9 mg/dL (8.4-10.2); Carbon Dioxide 24 mmol/L (22-30); Chloride 106 mmol/L (98-107); Estimated CRCL calculation 49 ml/min; Estimated Glomerular Filt Rate > 60; Glucose 80 mg/dL (65-110); Potassium 3.7 mmol/L (3.4-5.0); Sodium 134 mmol/L (137-145)
[2021-09-22] MEDS: SODIUM CHLORIDE 0.9% IV 1,000 ML 85 ML IV CONT (06:29)
[2021-09-22] MEDS: LEVOTHYROXINE SODIUM INJ 100 MCG/5 ML VIAL 37.5 MCG IV PUSH (06:29)
[2021-09-22] MEDS: ENOXAPARIN 40 MG/0.4 ML SYRINGE SUB-Q (09:06)
[2021-09-22] MEDS: AMIODARONE HCL 200 MG TABLET PO (09:07)
[2021-09-22] MEDS: PANTOPRAZOLE SODIUM IV 40 MG VIAL IV PUSH (09:07)
[2021-09-22] MEDS: lisinopriL 2.5 MG TABLET PO (09:08)
[2021-09-22] MEDS: METOPROLOL TARTRATE 12.5 MG TABLET PO ×2 (09:08→20:13)
[2021-09-22] MEDS: ATORVASTATIN 40 MG TABLET PO (09:08)
[2021-09-22] MEDS: MAGNESIUM OXIDE 400 MG TABLET PO (09:09)
[2021-09-22] MEDS: ASPIRIN 81 MG CHEWABLE TABLET PO (09:09)
--- NOTE | 2021-09-22 11:42 | PM.IMPN ---
Progress Note: A&P Assessment and Plan (1) Gastric distention: Code(s): K31.89 - Other diseases of stomach and duodenum Status: Acute Assessment and Plan: Patient presented to the emergency room from home due to vomiting, diarrhea and abdominal pain which occurred prior to arrival. Lab significant for leukocytosis with elevated neutrophils, lactic acidosis with the lactic of 2.9, increasing at 3.2 this morning, slight dehydration with a creatinine 1.1, BUN 25, normal LFTs, normal lipase. Normal urinalysis without signs of infection. CT abdomen pelvis showed Stomach distention with apparent pneumatosis along the greater curvature of stomach, portal venous gas, and venous gas adjacent to the greater curvature of the stomach. Findings are consistent with stomach ischemia. Surgical evaluation is recommended. Discussed with general surgeon who has evaluated the patient and states that this time the patient is hemodynamically stable, not complaining of any abdominal pain, nausea or vomiting. Dr. Michelle believes his pneumatosis is secondary to the vomiting he had been doing. He is unsure of the cause of the portal venous gas. But at this time the patient is not having symptoms if he has acute stomach ischemia. 09/21/21: Patient tolerated his NG tube being clamped for 24 hours and not having any complaints at this time. Surgery has removed NG tube and started Clear Liquid diet. 09/22/21: Patient is NPO for EGD this afternoon due to gastric distention causes such as ulcer, malignancy, ischemic changes, etc. Liquid stool in the rectum with mild mucosal enhancement, likely reflecting diarrhea. Could be secondary to acute viral illness.GI recommends stool cultures which are uncollected at this time and I do not see anymore stools reported since admission. Most likely viral in nature and self limiting. Continue IV fluids, 50 cc/hr until he is tolerating a diet after his EGD, then told nurse to D/c Unsure the reason for IV Zosyn? No UTI, Pneumonia, must be from GI symptoms it was added on. Will talk to Surgery and GI to see if this is still needed. Leukocytosis is improving Normal lactic acid at this time Continue monitoring the patient with serial exams, vital signs, and if any worsening symptoms do further labs. Appreciate General surgery and GI input. (2) Lactic acidosis: Code(s): E87.2 - Acidosis Status: Acute Assessment and Plan: Surgery believe secondary to acute dehydration & vomiting. Will continue with light IV fluids at this time, until eating without any issues. Exam otherwise benign for acute ischemia. Repeat lactic acid is normal x2. (3) Nausea & vomiting: Code(s): R11.2 - Nausea with vomiting, unspecified Status: Acute Assessment and Plan: Resolved (4) Leukocytosis: Code(s): D72.829 - Elevated white blood cell count, unspecified Status: Acute Assessment and Plan: Unsure of the underlying infection at this time but due to leukocytosis and lactic acidosis Urinalysis without signs of infection, CT abdomen not stating any significant type of an infection Chest x-ray shows no acute cardiopulmonary changes. 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 Stable per (6) CAD in [place] artery: Code(s): I25.10 - Atherosclerotic heart disease of [place] coronary artery without angina pect
[2021-09-22] MEDS: LACTATED RINGERS 1,000 ML 150 ML IV CONT (13:16)
--- NOTE | 2021-09-22 13:18 | PCPTNOTE ---
Attempted to see pt for PT session but transport was in the room to take pt down for an EGD. Will return later when pt is available/appropriate.
--- NOTE | 2021-09-22 13:31 | WPDANESEPPF ---
Anes - Initial Pre Proc Eval Procedure: Operation Date: 09/22/21 14:15 Proposed Procedures p Esophagogastroduodenoscopy - Naeem Vega MD Date/Time: 09/22/21 13:31 Surgeon: Maddy Alcala PA-C Pre Op Diagnosis: gastric pneumotosis, nausea, vomiting Patient Data Age: 81 Gender: M Height: 1.7 m Weight: 83 kg Last Vital Signs Temp 97.2 F L 09/22/21 13:00 Pulse 66 09/22/21 13:00 Resp 18 09/22/21 13:00 BP 120/65 09/22/21 13:00 Pulse Ox 95 09/22/21 13:00 Allergies Allergy/AdvReac Type Severity Reaction Status Date / Time diazepam Allergy Unknown Unknown Verified 09/20/21 05:58 Home Medications Medication Instructions Recorded Confirmed Type amiodarone 200 mg tablet 200 mg PO DAILY #180 tablet 05/05/21 09/20/21 Rx levothyroxine 75 mcg tablet 75 mcg PO DAILY #90 tablet 05/07/21 09/20/21 Rx atorvastatin 40 mg tablet 40 mg PO DAILY #90 tablet 07/03/21 09/20/21 Rx finasteride 5 mg tablet 5 mg PO HS #90 tablet 07/03/21 09/20/21 Rx metoprolol tartrate 25 mg tablet 12.5 mg PO BID #180 tablet 08/08/21 09/20/21 Rx aspirin 81 mg PO DAILY 09/20/21 09/20/21 History lisinopril 2.5 mg PO DAILY 09/20/21 09/20/21 History loratadine [Allergy Relief 10 mg PO HS 09/20/21 09/20/21 History (loratadine)] magnesium oxide 400 mg PO DAILY 09/20/21 09/20/21 History omega-3 fatty acids [Fish Oil] 500 mg PO DAILY 09/20/21 09/20/21 History Laboratory Tests 09/22/21 09/22/21 05:52 05:52 WBC 10.7 K/mm3 H K/mm3 (4.5-10.0) RBC 3.95 M/mm3 L M/mm3 (4.6-6.20) Hgb 12.0 g/dL L g/dL (14.0-18.0) Hct 36.1 % L % (42.0-52.0) MCV 91.4 fl fl (80-100) MCH 30.4 pg pg (26-34) MCHC 33.2 g/dl g/dl (32-36) RDW 16.9 % H % (11.5-14.5) Plt Count 133 k/mm3 L k/mm3 (150-375) MPV 9.4 fl fl (7.4-10.4) Immature Gran % (Auto) 0.6 % H % (0-0.5) Neut % (Auto) 74.3 % H % (45.5-73.1) Lymph % (Auto) 17.1 % L % (18.3-44.2) [place] % (Auto) 6.0 % % (2.6-8.5) Eos % (Auto) 1.6 % % (0-4.4) Baso % (Auto) 0.4 % % (0.2-1.2) Lymph # (Auto) 1.83 K/mm3 K/mm3 (0.9-3.2) [place] # (Auto) 0.6 K/mm3 K/mm3 (0.1-0.6) Eos # (Auto) 0.2 K/mm3 K/mm3 (0-0.3) Baso # (Auto) 0.0 K/mm3 K/mm3 (0.0-0.1) Abs Immat Gran (auto) 0.06 K/mm3 H K/mm3 (0.00-0.031) Absolute Neuts (auto) 8.0 K/mm3 H K/mm3 (1.3-6.7) Absolute Nucleated RBC 0.0 K/mm3 K/mm3 (0.0-0.012) Nucleated RBC % 0.0 % % (0.0-0.2) % Immature Plt Fraction 2.2 % % (0.9-11.2) Sodium 134 mmol/L L mmol/L (137-145) Potassium 3.7 mmol/L mmol/L (3.4-5.0) Chloride 106 mmol/L mmol/L (98-107) Carbon Dioxide 24 mmol/L mmol/L (22-30) Anion Gap 4 mmol/L L mmol/L (8-16) BUN 13 mg/dL mg/dL (9-20) Creatinine 1.00 mg/dL mg/dL (0.7-1.3) Estim Creat Clear Calc 49 ml/min ml/min Estimated GFR > 60 (59 - ) Glucose 80 mg/dL mg/dL (65-110) Calcium 7.9 mg/dL L mg/dL (8.4-10.2) Total Bilirubin 1.3 mg/dL mg/dL (0.2-1.3) AST 26 U/L U/L (17-59) ALT 32 U/L U/L (4-50) Alkaline Phosphatase 50 U/L U/L (38-126) Total Protein 5.0 g/dL L g/dL (6.3-8.2) Albumin 2.5 g/dL L g/dL (3.5-5.1) Patient hx anesthesia problems: none Family hx anesthesia problems: none Results Review: All pre-operative results and documents have been reviewed as part of the pre-operative evaluation. 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
--- NOTE | 2021-09-22 14:15 | PCNSR ---
On 09/22/21, the student, Qian Britt, provided care and completed [facility] documentation on this patient. I have reviewed the student's documentation and agree with the findings.
--- NOTE | 2021-09-22 15:58 | PM.PNGS ---
Progress Note: A&P Assessment and Plan (1) Pneumobilia: Code(s): K83.8 - Other specified diseases of biliary tract Status: Acute Assessment and Plan: Abdominal exam continues to be benign. Clinically improving. WBC trending down and lactic now normal. EGD today showed gastritis. No ischemic changes. No plans for surgical intervention. Continue medical management. Okay to continue advancing diet as tolerated from our standpoint. Will sign off at this point. Please let us know if there are any other surgical needs in the future. Additional Plan I have discussed the patient's case and plan of care with Dr. Michelle. Subjective Subjective Date/Time Seen: 09/22/21 15:58 Patient reports: no new complaints, feels better, flatus and bowel movement Interval history: This is a 81-year-old male with multiple medical issues, including dementia, CAD, who presented to the emergency department with intractable nausea & vomiting, abdominal pain, diarrhea. CT scan abd/pelvis showed stomach distention with apparent pneumatosis along the greater curvature of stomach, portal venous gas, and venous gas adjacent to the greater curvature of the stomach. WBC 15,000 on admission, which has slowly been trending down. Lactic acid peaked at 3.2 and is now down to 1.6. He has been hemodynamically stable and responding to medical management. GI performed an EGD today and report suggests findings only of gastritis. Chart reviewed. The patient is seen after EGD today. He reports feeling well without any specific complaints. No abdominal pain, nausea, or vomiting. He is afebrile. Has tolerated some clear liquids after the EGD without any issues. Review of Systems Gastrointestinal: Gastrointestinal: Reports as per HPI and Reports no additional gastrointestinal complaints Exam Const: General: comfortable and no acute distress Orientation/consciousness: oriented to person, oriented to place and Other orientation findings (hx dementia) GI: Inspection: normal to inspection and non-distended GI Palp: Yes Soft to palpation, No Tenderness to palpation present (GI), No Guarding due to palpation present (GI), No Rigid due to palpation, No Hernia present, No Palpable mass present and No Rebound tenderness present Percussion: Yes normal to percussion Auscultation: normal bowel sounds Neuro: General: moves all extremities and no focal motor deficits Extrem: General: normal to inspection and no edema Psych: Mental Status: mental status grossly normal Insight: Fair insight present (Psych) Judgement: Fair judgement present (Psych) Objective Data Vital Signs Vital Signs: Vital Signs - 24 hr 09/21/21 20:00 09/21/21 20:17 09/21/21 20:44 Temperature 97.8 F Pulse Rate 72 78 68 Respiratory Rate 18 18 Blood Pressure 116/62 Pulse Oximetry 94 94 09/21/21 20:57 09/22/21 06:39 09/22/21 08:00 Temperature 98 F Pulse Rate 72 66 66 Respiratory Rate 18 18 22 H Blood Pressure 108/65 Pulse Oximetry 94 93 96 09/22/21 08:39 09/22/21 08:40 09/22/21 09:07 Temperature 97.1 F L 97.1 F L Pulse Rate 65 65 65 Respiratory Rate 16 16 Blood Pressure 146/71 H 146/71 H Pulse Oximetry 93 93 09/22/21 09:08 09/22/21 13:00 09/22/21 14:06 Temperature 97.2 F L Pulse Rate 65 66 65 Respiratory Rate 18 16 Blood Pressure 120/65 98/50 L Pulse Oximetry 95 93 09/22/21 14:16 09/22/21 14:26 09/22/21 14:51 Temperature 97.1 F L Pulse Rate 66 67 68 Respiratory Rate 22 H 23 H 15 Blood Pressure 101/58 L 106/60 108/79 Pulse Oximetry 96 97 96 Intake/Output Intake/Output: Intake & Output 09/19/21 09/20/21 09/21/21 09/22/21 23:59 23:59 23:59 23:59 Intake Total 4750 3580 1300 Output Total 350 150 Balance 4400 3430 1300 Meds/Results Medications: Active Medications Generic Name Dose Route Start Last Admin Trade Name Freq PRN Reason Stop Dose Admin Amiodarone HCl 200 mg 09/20/21 09:00 09/22/21 09:07 Amiodarone Hcl 200 Mg Tablet
[2021-09-22] MEDS: LORATADINE 10 MG TABLET PO (20:13)
[2021-09-22] MEDS: FINASTERIDE 5 MG TABLET PO (20:13)
[2021-09-23] VITALS (7 sets, daily range): BP systolic 102–122; BP diastolic 48–55; PULSE 64–72; RESP 16–18; TEMP 36–37.1; O2SAT 92–95
--- NOTE | 2021-09-23 01:51 | PC.NURSE ---
This patient, Devyn Angeles, was transferred to [ [facility]] on 09/23/21 at 0151. Personal belongings sent with patient. Report given to [Oziel ]. Appropriate documentation sent with patient.
[2021-09-23] MEDS: LEVOTHYROXINE SODIUM INJ 100 MCG/5 ML VIAL 37.5 MCG IV PUSH (05:32)
[2021-09-23 06:46] LABS: Basophils Percent Auto 0.4 % (0.2-1.2); Eosinophils Absolute Auto 0.2 K/mm3 (0-0.3); Eosinophils Percent Auto 2.6 % (0-4.4); Hematocrit 37.6 % (42.0-52.0); Hemoglobin 12.3 g/dL (14.0-18.0); Immature Granulocyte Absolute 0.05 K/mm3 (0.00-0.031); Immature Granulocyte Percent A 0.6 % (0-0.5); Lymphocytes Absolute Auto 1.56 K/mm3 (0.9-3.2); Mean Corpuscular HGB Conc 32.7 g/dl (32-36); Mean Corpuscular Hemoglobin 29.6 pg (26-34); Mean Corpuscular Volume 90.4 fl (80-100); Mean Platelet Volume 9.7 fl (7.4-10.4); Monocytes Absolute Auto 0.5 K/mm3 (0.1-0.6); Monocytes Percent Auto 6.5 % (2.6-8.5); Neutrophils Absolute Auto 5.8 K/mm3 (1.3-6.7); Neutrophils Percent Auto 70.9 % (45.5-73.1); Platelet Count Result 148 k/mm3 (150-375); Red Blood Count 4.16 M/mm3 (4.6-6.20); White Blood Count 8.2 K/mm3 (4.5-10.0)
[2021-09-23 06:59] LABS: Anion Gap 4 mmol/L (8-16); Blood Urea Nitrogen 14 mg/dL (9-20); Calcium 7.7 mg/dL (8.4-10.2); Carbon Dioxide 28 mmol/L (22-30); Chloride 104 mmol/L (98-107); Estimated CRCL calculation 49 ml/min; Estimated Glomerular Filt Rate > 60; Glucose 111 mg/dL (65-110); Potassium 3.4 mmol/L (3.4-5.0); Sodium 136 mmol/L (137-145)
--- NOTE | 2021-09-23 09:15 | PCOTNOTE ---
Attempted to see patient this AM for occupational therapy, patient still eating breakfast asked JAC to return in a little while. Will attempt again.
--- NOTE | 2021-09-23 09:37 | P.PNAN_ITS ---
Anes - Prog Note Post-Op Date/Time: 09/23/21 09:37 Cardiovascular status: normal Respiratory status: normal Airway patency: baseline Mental status: baseline Post-Op hydration status: normal Vital Signs: Last Vital Signs Temp 36.4 C 09/23/21 05:38 Pulse 71 09/23/21 05:38 Resp 18 09/23/21 05:38 BP 102/48 L 09/23/21 05:38 Pulse Ox 92 09/23/21 05:38 Pain Score (VAS): 0 I/O: Intake & Output 09/22/21 09/23/21 09/23/21 23:59 07:59 15:59 Intake Total 640 50 Output Total 200 Balance 640 -150 Laboratory Tests 09/23/21 05:45 09/23/21 05:45 09/23/21 09/23/21 05:45 05:45 WBC 8.2 RBC 4.16 L Hgb 12.3 L Hct 37.6 L MCV 90.4 MCH 29.6 MCHC 32.7 RDW 17.0 H Plt Count 148 L MPV 9.7 Immature Gran % (Auto) 0.6 H Neut % (Auto) 70.9 Lymph % (Auto) 19.0 [place] % (Auto) 6.5 Eos % (Auto) 2.6 Baso % (Auto) 0.4 Lymph # (Auto) 1.56 [place] # (Auto) 0.5 Eos # (Auto) 0.2 Baso # (Auto) 0.0 Abs Immat Gran (auto) 0.05 H Absolute Neuts (auto) 5.8 Absolute Nucleated RBC 0.0 Nucleated RBC % 0.0 Sodium 136 L Potassium 3.4 Chloride 104 Carbon Dioxide 28 Anion Gap 4 L BUN 14 Creatinine 1.00 Estim Creat Clear Calc 49 Estimated GFR > 60 Glucose 111 H Calcium 7.7 L Post-procedural complaints: none Patient Feedback: Patient satisfied with anesthetic care.
[2021-09-23] MEDS: ASPIRIN 81 MG CHEWABLE TABLET PO (10:20)
[2021-09-23] MEDS: METOPROLOL TARTRATE 12.5 MG TABLET PO ×2 (10:20→20:44)
[2021-09-23] MEDS: ATORVASTATIN 40 MG TABLET PO (10:21)
[2021-09-23] MEDS: lisinopriL 2.5 MG TABLET PO (10:21)
[2021-09-23] MEDS: AMIODARONE HCL 200 MG TABLET PO (10:21)
[2021-09-23] MEDS: ENOXAPARIN 40 MG/0.4 ML SYRINGE SUB-Q (10:21)
[2021-09-23] MEDS: MAGNESIUM OXIDE 400 MG TABLET PO (10:21)
[2021-09-23] MEDS: PANTOPRAZOLE SODIUM IV 40 MG VIAL IV PUSH ×2 (10:21→20:47)
--- NOTE | 2021-09-23 13:53 | PM.IMPN ---
Progress Note: A&P Assessment and Plan (1) Gastric distention: Code(s): K31.89 - Other diseases of stomach and duodenum Status: Acute Assessment and Plan: Patient presented to the emergency room from home due to vomiting, diarrhea and abdominal pain which occurred prior to arrival. Lab significant for leukocytosis with elevated neutrophils, lactic acidosis with the lactic of 2.9, increasing at 3.2 this morning, slight dehydration with a creatinine 1.1, BUN 25, normal LFTs, normal lipase. Normal urinalysis without signs of infection. CT abdomen pelvis showed Stomach distention with apparent pneumatosis along the greater curvature of stomach, portal venous gas, and venous gas adjacent to the greater curvature of the stomach. Findings are consistent with stomach ischemia. Surgical evaluation is recommended. Discussed with general surgeon who has evaluated the patient and states that this time the patient is hemodynamically stable, not complaining of any abdominal pain, nausea or vomiting. Dr. Michelle believes his pneumatosis is secondary to the vomiting he had been doing. He is unsure of the cause of the portal venous gas. But at this time the patient is not having symptoms of acute stomach ischemia. Surgery has signed off at this time. 09/21/21: Patient tolerated his NG tube being clamped for 24 hours and not having any complaints at this time. Surgery has removed NG tube and started Clear Liquid diet. 09/22/21: Patient is NPO for EGD this afternoon due to gastric distention causes such as ulcer, malignancy, ischemic changes, etc. Liquid stool in the rectum with mild mucosal enhancement, likely reflecting diarrhea. Could be secondary to acute viral illness.GI recommends stool cultures which are uncollected at this time and I do not see anymore stools reported since admission. Most likely viral in nature and self limiting. 09/23/21: Unsure the reason for IV Zosyn? No UTI, Pneumonia, must be from GI symptoms it was added on. Leukocytosis is improving. Normal lactic acid at this time. I see no reason to continue, will dc at this time. EGD w/ gastritis which GI states could explain part of symptoms. GI Recommends soft diet and continuing protonix. Tolerating low fiber diet. Seems to be improving clinically, however concerned that he is still weak. PT/OT. (2) Lactic acidosis: Code(s): E87.2 - Acidosis Status: Acute Assessment and Plan: Surgery believes secondary to acute dehydration & vomiting. Tolerating low fat diet at this time. Exam otherwise benign for acute ischemia. Repeat lactic acid is normal x2. (3) Nausea & vomiting: Code(s): R11.2 - Nausea with vomiting, unspecified Status: Acute Assessment and Plan: Resolved (4) Leukocytosis: Code(s): D72.829 - Elevated white blood cell count, unspecified Status: Acute Assessment and Plan: Unsure of the underlying infection at this time but due to leukocytosis and lactic acidosis Urinalysis without signs of infection, CT abdomen not stating any significant type of an infection Chest x-ray shows no acute cardiopulmonary changes. 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 Stable per (6) CAD in [place] artery: Code(s): I25.10 - Atherosclerotic heart disease of [place] coronary artery without angina pectoris Status: Chronic Assessment and Plan: No complaints of chest pain at this time. Stable. Continue to mon
--- NOTE | 2021-09-23 16:36 | WPDGIPROGNO ---
Progress Note: A&P Assessment and Plan (1) Erosive gastritis: Code(s): K29.60 - Other gastritis without bleeding Status: Acute Assessment and Plan: continue with protonix twice daily pending biopsies tolerating diet and feeling better home soon (2) Gastric distention: Code(s): K31.89 - Other diseases of stomach and duodenum Status: Acute Assessment and Plan: probably from egd findings he is feeling much better (3) Intractable nausea and vomiting: Code(s): R11.2 - Nausea with vomiting, unspecified Status: Acute Assessment and Plan: resolved (4) Diarrhea: Code(s): R19.7 - Diarrhea, unspecified Status: Acute (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 Patient denies any pain and has been tolerating diet, he is comfortable, no diarrhea. Review of Systems Review of Systems: All systems reviewed & are unremarkable except as noted in HPI and below Exam Const: General: comfortable and no acute distress HENMT: General nose exam: Normal nares present Eyes: General: appearance normal, both eyes and all related structures Neck: Neck: no JVD Resp: Auscultation: clear to auscultation bilaterally Cardio: Rate: regular rate Rhythm: regular rhythm GI: Inspection: non-distended GI Palp: Yes Soft to palpation and No Guarding due to palpation present (GI) Auscultation: normal bowel sounds Skin: General skin exam: normal color Neuro: Speech: normal speech Motor exam (neuro): Normal motor muscle tone present throughout Extrem: General: normal to inspection Psych: Mental Status: mental status grossly normal Objective Data Vital Signs Vital Signs: Vital Signs - 24 hr 09/22/21 20:10 09/22/21 20:13 09/22/21 23:43 Temperature 99.1 F 98.5 F Pulse Rate 73 70 Respiratory Rate 16 Blood Pressure 137/65 Pulse Oximetry 100 09/23/21 02:13 09/23/21 05:38 09/23/21 10:20 Temperature 98.5 F 97.6 F Pulse Rate 64 71 72 Respiratory Rate 18 18 Blood Pressure 121/53 L 102/48 L Pulse Oximetry 94 92 09/23/21 10:21 Temperature Pulse Rate 72 Respiratory Rate Blood Pressure Pulse Oximetry Intake/Output Intake/Output: Intake & Output 09/20/21 09/21/21 09/22/21 09/23/21 23:59 23:59 23:59 23:59 Intake Total 4750 3580 1940 220 Output Total 350 150 200 Balance 4400 3430 1940 20 Meds/Results Medications: Active Medications Generic Name Dose Route Start Last Admin Trade Name Steveq PRN Reason Stop Dose Admin Amiodarone HCl 200 mg 09/20/21 09:00 09/23/21 10:21 Amiodarone Hcl 200 Mg Tablet PO 200 mg DAILY ROSEMARY Administration Aspirin 81 mg 09/21/21 08:00 09/23/21 10:20 Aspirin 81 Mg Chewable Tablet PO 81 mg DAILY@0800 ROSEMARY Administration Atorvastatin Calcium 40 mg 09/20/21 09:00 09/23/21 10:21 Atorvastatin 40 Mg Tablet PO 40 mg DAILY ROSEMARY Administration Enoxaparin Sodium 40 mg 09/20/21 11:25 09/23/21 10:21 Enoxaparin 40 Mg/0.4 Ml Syringe SUB-Q 40 mg DAILY ROSEMARY Administration Finasteride 5 mg 09/20/21 21:00 09/22/21 20:13 Finasteride 5 Mg Tablet PO 5 mg HS ROSEMARY Administration Levothyroxine Sodium 37.5 mcg 09/20/21 08:05 09/23/21 05:32 Levothyroxine Sodium Inj 100 Mcg/5 Ml Vial IV PUSH 37.5 mcg DAILY@0630 ROSEMARY Administration Lisinopril 2.5 mg 09/20/21 09:00 09/23/21 10:21 Lisinopril 2.5 Mg Tablet PO 2.5 mg DAILY ROSEMARY Administration Loratadine 10 mg 09/20/21 21:00 09/22/21 20:13 Loratadine 10 Mg Tablet PO 10 mg HS ROSEMARY Administration Magnesium Oxide 400 mg 09/20/21 09:00 09/23/21 10:21 Magnesium Oxide 400 Mg Tablet PO 400 mg DAILY ROSEMARY Administration Metoprolol Tartrate 12.5 mg 09/20/21 21:00 09/23/21 10:20 Metoprolol Tartrate 12.5 Mg Table
[2021-09-23] MEDS: FINASTERIDE 5 MG TABLET PO (20:44)
[2021-09-23] MEDS: LORATADINE 10 MG TABLET PO (20:44)
[2021-09-24 05:46] VITALS: BP 121/85; PULSE 67; RESP 18; TEMP 37.3; O2SAT 93
[2021-09-24] MEDS: LEVOTHYROXINE SODIUM INJ 100 MCG/5 ML VIAL 37.5 MCG IV PUSH (05:48)
[2021-09-24 06:40] LABS: Basophils Percent Auto 0.6 % (0.2-1.2); Eosinophils Absolute Auto 0.2 K/mm3 (0-0.3); Eosinophils Percent Auto 2.6 % (0-4.4); Hematocrit 35.8 % (42.0-52.0); Hemoglobin 11.9 g/dL (14.0-18.0); Immature Granulocyte Absolute 0.04 K/mm3 (0.00-0.031); Immature Granulocyte Percent A 0.6 % (0-0.5); Lymphocytes Absolute Auto 1.74 K/mm3 (0.9-3.2); Lymphocytes Percent Auto 24.1 % (18.3-44.2); Mean Corpuscular HGB Conc 33.2 g/dl (32-36); Mean Corpuscular Hemoglobin 29.3 pg (26-34); Mean Corpuscular Volume 88.2 fl (80-100); Mean Platelet Volume 9.2 fl (7.4-10.4); Monocytes Absolute Auto 0.7 K/mm3 (0.1-0.6); Monocytes Percent Auto 9.2 % (2.6-8.5); Neutrophils Absolute Auto 4.5 K/mm3 (1.3-6.7); Neutrophils Percent Auto 62.9 % (45.5-73.1); Platelet Count Result 152 k/mm3 (150-375); Red Blood Count 4.06 M/mm3 (4.6-6.20); Red Cell Distribution Width 16.6 % (11.5-14.5); White Blood Count 7.2 K/mm3 (4.5-10.0)
[2021-09-24 07:08] LABS: Alanine Aminotransferase 23 U/L (4-50); Albumin Level 2.7 g/dL (3.5-5.1); Alkaline Phosphatase 52 U/L (38-126); Anion Gap 5 mmol/L (8-16); Aspartate Amino Transferase 22 U/L (17-59); Bilirubin,Total 0.7 mg/dL (0.2-1.3); Blood Urea Nitrogen 11 mg/dL (9-20); Calcium 7.9 mg/dL (8.4-10.2); Carbon Dioxide 30 mmol/L (22-30); Chloride 102 mmol/L (98-107); Estimated CRCL calculation 55 ml/min; Estimated Glomerular Filt Rate > 60; Glucose 105 mg/dL (65-110); Potassium 3.4 mmol/L (3.4-5.0); Sodium 137 mmol/L (137-145)
[2021-09-24] MEDS: ASPIRIN 81 MG CHEWABLE TABLET PO (10:06)
[2021-09-24 10:07] VITALS: PULSE 65
[2021-09-24] MEDS: AMIODARONE HCL 200 MG TABLET PO (10:07)
[2021-09-24] MEDS: ENOXAPARIN 40 MG/0.4 ML SYRINGE SUB-Q (10:07)
[2021-09-24] MEDS: ATORVASTATIN 40 MG TABLET PO (10:07)
[2021-09-24] MEDS: lisinopriL 2.5 MG TABLET PO (10:07)
[2021-09-24] MEDS: MAGNESIUM OXIDE 400 MG TABLET PO (10:07)
[2021-09-24 10:08] VITALS: PULSE 65
[2021-09-24] MEDS: PANTOPRAZOLE SODIUM IV 40 MG VIAL IV PUSH (10:08)
[2021-09-24] MEDS: METOPROLOL TARTRATE 12.5 MG TABLET PO ×2 (10:08→21:39)
--- NOTE | 2021-09-24 11:34 | PC.NURSE ---
On 09/24/21, the student, Megan López, provided care and [facility]. I have reviewed the student's documentation and agree with the findings.
--- NOTE | 2021-09-24 12:32 | WPDGIPROGNO ---
Progress Note: A&P Assessment and Plan (1) Erosive gastritis: Code(s): K29.60 - Other gastritis without bleeding Status: Acute Assessment and Plan: continue with protonix twice daily- will send to his pharmacy pending biopsies tolerating diet and feeling better he can go home by GI standpoint (2) Gastric distention: Code(s): K31.89 - Other diseases of stomach and duodenum Status: Acute Assessment and Plan: probably from egd finding and resolved (3) Intractable nausea and vomiting: Code(s): R11.2 - Nausea with vomiting, unspecified Status: Acute Assessment and Plan: resolved (4) Diarrhea: Code(s): R19.7 - Diarrhea, unspecified Status: Acute (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 Subjective Date/time seen: 09/24/21 12:32 Interval history: tolerating diet and no abdominal pain, he is feeling like going home Review of Systems Review of Systems: All systems reviewed & are unremarkable except as noted in HPI and below Exam Const: General: comfortable and no acute distress HENMT: General nose exam: Normal nares present Eyes: General: appearance normal, both eyes and all related structures Neck: Neck: no JVD Resp: Auscultation: clear to auscultation bilaterally Cardio: Rate: regular rate Rhythm: regular rhythm GI: Inspection: non-distended GI Palp: Yes Soft to palpation and No Guarding due to palpation present (GI) Auscultation: normal bowel sounds Skin: General skin exam: normal color Neuro: Speech: normal speech Motor exam (neuro): Normal motor muscle tone present throughout Extrem: General: normal to inspection Psych: Mental Status: mental status grossly normal Objective Data Vital Signs Vital Signs: Vital Signs - 24 hr 09/23/21 14:00 09/23/21 20:44 09/23/21 21:48 Temperature 96.8 F L 98.7 F Pulse Rate 64 72 70 Respiratory Rate 16 18 Blood Pressure 102/55 L 122/53 L Pulse Oximetry 95 95 09/24/21 05:46 09/24/21 10:07 09/24/21 10:08 Temperature 99.2 F Pulse Rate 67 65 65 Respiratory Rate 18 Blood Pressure 121/85 Pulse Oximetry 93 Intake/Output Intake/Output: Intake & Output 09/21/21 09/22/21 09/23/21 09/24/21 23:59 23:59 23:59 23:59 Intake Total 3580 1940 1140 550 Output Total 150 200 740 Balance 3430 1940 940 -190 Meds/Results Medications: Active Medications Generic Name Dose Route Start Last Admin Trade Name Freq PRN Reason Stop Dose Admin Amiodarone HCl 200 mg 09/20/21 09:00 09/24/21 10:07 Amiodarone Hcl 200 Mg Tablet PO 200 mg DAILY ROSEMARY Administration Aspirin 81 mg 09/21/21 08:00 09/24/21 10:06 Aspirin 81 Mg Chewable Tablet PO 81 mg DAILY@0800 ROSEMARY Administration Atorvastatin Calcium 40 mg 09/20/21 09:00 09/24/21 10:07 Atorvastatin 40 Mg Tablet PO 40 mg DAILY ROSEMARY Administration Docusate Sodium 100 mg 09/24/21 09:13 Docusate Sodium 100 Mg Capsule PO Q12H PRN Constipation Enoxaparin Sodium 40 mg 09/20/21 11:25 09/24/21 10:07 Enoxaparin 40 Mg/0.4 Ml Syringe SUB-Q 40 mg DAILY ROSEMARY Administration Finasteride 5 mg 09/20/21 21:00 09/23/21 20:44 Finasteride 5 Mg Tablet PO 5 mg HS ROSEMARY Administration Levothyroxine Sodium 37.5 mcg 09/20/21 08:05 09/24/21 05:48 Levothyroxine Sodium Inj 100 Mcg/5 Ml Vial IV PUSH 37.5 mcg DAILY@0630 ROSEMARY Administration Lisinopril 2.5 mg 09/20/21 09:00 09/24/21 10:07 Lisinopril 2.5 Mg Tablet PO 2.5 mg DAILY ROSEMARY Administration Loratadine 10 mg 09/20/21 21:00 09/23/21 20:44 Loratadine 10 Mg Tablet PO 10 mg HS ROSEMARY Administration Magnesium Oxide 400 mg 09/20/21 09:00 09/24/21 10:07 Magnesium Oxide 400 Mg Tablet PO 400 mg DAILY ROSEMARY Administration Metoprolol Tartrate 12.5 mg 09/20/21 21:00 09/24/21 10:08 Metoprolol Tartrate 12.5 Mg Tablet PO 12.5 mg
[2021-09-24 14:14] VITALS: BP 99/55; PULSE 63; RESP 20; TEMP 36.2; O2SAT 94
--- NOTE | 2021-09-24 16:12 | PCOTNOTE ---
On 09/24/21, the student, Jo Hickey, provided care and completed [email or web address] documentation on this patient. I have reviewed the student's documentation and agree with the findings.
--- NOTE | 2021-09-24 16:31 | PM.IMPN ---
Progress Note: A&P Assessment and Plan (1) Gastric distention: Code(s): K31.89 - Other diseases of stomach and duodenum Status: Acute Assessment and Plan: Patient presented to the emergency room from home due to vomiting, diarrhea and abdominal pain which occurred prior to arrival. Lab significant for leukocytosis with elevated neutrophils, lactic acidosis with the lactic of 2.9, increasing at 3.2 this morning, slight dehydration with a creatinine 1.1, BUN 25, normal LFTs, normal lipase. Normal urinalysis without signs of infection. CT abdomen pelvis showed Stomach distention with apparent pneumatosis along the greater curvature of stomach, portal venous gas, and venous gas adjacent to the greater curvature of the stomach. Findings are consistent with stomach ischemia. Surgical evaluation is recommended. Discussed with general surgeon who has evaluated the patient and states that this time the patient is hemodynamically stable, not complaining of any abdominal pain, nausea or vomiting. Dr. Michelle believes his pneumatosis is secondary to the vomiting he had been doing. He is unsure of the cause of the portal venous gas. But at this time the patient is not having symptoms of acute stomach ischemia. Surgery has signed off at this time. 09/21/21: Patient tolerated his NG tube being clamped for 24 hours and not having any complaints at this time. Surgery has removed NG tube and started Clear Liquid diet. 09/22/21: Patient is NPO for EGD this afternoon due to gastric distention causes such as ulcer, malignancy, ischemic changes, etc. Liquid stool in the rectum with mild mucosal enhancement, likely reflecting diarrhea. Could be secondary to acute viral illness.GI recommends stool cultures which are uncollected at this time and I do not see anymore stools reported since admission. Most likely viral in nature and self limiting. 09/23/21: Unsure the reason for IV Zosyn? No UTI, Pneumonia, must be from GI symptoms it was added on. Leukocytosis is improving. Normal lactic acid at this time. I see no reason to continue, will dc at this time. EGD w/ gastritis which GI states could explain part of symptoms. GI Recommends soft diet and continuing protonix. Tolerating low fiber diet. Seems to be improving clinically, however concerned that he is still weak. PT/OT. Still has not had BM x 5 days despite miralax and colace, did have NG tube so would like to see him move his bowels prior to discharge. Will try suppository. (2) Lactic acidosis: Code(s): E87.2 - Acidosis Status: Acute Assessment and Plan: Surgery believes secondary to acute dehydration & vomiting. Tolerating low fat diet at this time. Exam otherwise benign for acute ischemia. Repeat lactic acid is normal x2. (3) Nausea & vomiting: Code(s): R11.2 - Nausea with vomiting, unspecified Status: Acute Assessment and Plan: Resolved (4) Leukocytosis: Code(s): D72.829 - Elevated white blood cell count, unspecified Status: Acute Assessment and Plan: Unsure of the underlying infection at this time but due to leukocytosis and lactic acidosis Urinalysis without signs of infection, CT abdomen not stating any significant type of an infection Chest x-ray shows no acute cardiopulmonary changes. 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 Stable per (6) CAD in [place] artery: Code(s): I25.10 - Atherosclerotic heart disease of [place]
[2021-09-24] MEDS: BISACODYL 10 MG SUPPOSITORY RECTAL (18:40)
[2021-09-24 21:22] VITALS: BP 117/68; PULSE 61; RESP 16; TEMP 36.5; O2SAT 92
[2021-09-24] MEDS: FINASTERIDE 5 MG TABLET PO (21:39)
[2021-09-24] MEDS: LORATADINE 10 MG TABLET PO (21:39)
[2021-09-24] MEDS: PANTOPRAZOLE 40 MG TABLET PO (21:40)
[2021-09-25] MEDS: LEVOTHYROXINE SODIUM INJ 100 MCG/5 ML VIAL 37.5 MCG IV PUSH (06:55)
[2021-09-25 06:56] LABS: Basophils Percent Auto 0.6 % (0.2-1.2); Eosinophils Absolute Auto 0.2 K/mm3 (0-0.3); Eosinophils Percent Auto 2.5 % (0-4.4); Hematocrit 37.7 % (42.0-52.0); Hemoglobin 12.6 g/dL (14.0-18.0); Immature Granulocyte Absolute 0.03 K/mm3 (0.00-0.031); Immature Granulocyte Percent A 0.4 % (0-0.5); Lymphocytes Absolute Auto 1.52 K/mm3 (0.9-3.2); Mean Corpuscular HGB Conc 33.4 g/dl (32-36); Mean Corpuscular Hemoglobin 29.2 pg (26-34); Mean Corpuscular Volume 87.3 fl (80-100); Mean Platelet Volume 8.8 fl (7.4-10.4); Monocytes Absolute Auto 0.7 K/mm3 (0.1-0.6); Monocytes Percent Auto 9.4 % (2.6-8.5); Neutrophils Absolute Auto 4.5 K/mm3 (1.3-6.7); Neutrophils Percent Auto 65.1 % (45.5-73.1); Platelet Count Result 160 k/mm3 (150-375); Red Blood Count 4.32 M/mm3 (4.6-6.20); Red Cell Distribution Width 16.6 % (11.5-14.5); White Blood Count 6.9 K/mm3 (4.5-10.0)
[2021-09-25 07:16] LABS: Alanine Aminotransferase 26 U/L (4-50); Alkaline Phosphatase 60 U/L (38-126); Anion Gap 4 mmol/L (8-16); Aspartate Amino Transferase 25 U/L (17-59); Bilirubin,Total 0.9 mg/dL (0.2-1.3); Blood Urea Nitrogen 10 mg/dL (9-20); Calcium 8.2 mg/dL (8.4-10.2); Carbon Dioxide 29 mmol/L (22-30); Chloride 101 mmol/L (98-107); Estimated CRCL calculation 55 ml/min; Estimated Glomerular Filt Rate > 60; Glucose 96 mg/dL (65-110); Potassium 3.5 mmol/L (3.4-5.0); Sodium 134 mmol/L (137-145)
[2021-09-25 10:32] VITALS: BP 114/57; PULSE 65; RESP 16; TEMP 36.1; O2SAT 91
[2021-09-25 10:45] VITALS: PULSE 64
[2021-09-25] MEDS: ENOXAPARIN 40 MG/0.4 ML SYRINGE SUB-Q (10:45)
[2021-09-25] MEDS: AMIODARONE HCL 200 MG TABLET PO (10:45)
[2021-09-25 10:46] VITALS: PULSE 64
[2021-09-25] MEDS: ATORVASTATIN 40 MG TABLET PO (10:46)
[2021-09-25] MEDS: PANTOPRAZOLE 40 MG TABLET PO (10:46)
[2021-09-25] MEDS: lisinopriL 2.5 MG TABLET PO (10:46)
[2021-09-25] MEDS: METOPROLOL TARTRATE 12.5 MG TABLET PO (10:46)
[2021-09-25] MEDS: ASPIRIN 81 MG CHEWABLE TABLET PO (10:46)
[2021-09-25] MEDS: MAGNESIUM OXIDE 400 MG TABLET PO (10:47)
[2021-09-25] MEDS: polyethylene glycoL 3350 17 GM POWD.PACK PO (10:47)
--- NOTE | 2021-09-25 12:18 | PM.DS ---
DS: Admitting Diagnosis Discharge Date 09/25/21 Admitting Diagnosis Gastric distension DS: Discharge Diagnosis Discharge Diagnosis (1) Gastric distention: Code(s): K31.89 - Other diseases of stomach and duodenum Status: Acute Assessment and Plan: Patient presented to the emergency room from home due to vomiting, diarrhea and abdominal pain which occurred prior to arrival. Lab significant for leukocytosis with elevated neutrophils, lactic acidosis with the lactic of 2.9, increasing at 3.2, slight dehydration with a creatinine 1.1, BUN 25, normal LFTs, normal lipase. Normal urinalysis without signs of infection. CT abdomen pelvis showed gastric distention with apparent pneumatosis along the greater curvature of stomach, portal venous gas, and venous gas adjacent to the greater curvature of the stomach. Findings consistent with stomach ischemia. Surgical evaluation was recommended. Discussed with general surgeon who has evaluated the patient and states that this time the patient is hemodynamically stable, not complaining of any abdominal pain, nausea or vomiting. Dr. Michelle believes his pneumatosis is secondary to the vomiting he had been doing. He is unsure of the cause of the portal venous gas. But at this time the patient is not having symptoms of acute stomach ischemia. Surgery has signed off at this time. Does not recommend any further intervention. 09/21/21: Patient tolerated his NG tube being clamped for 24 hours and not having any complaints at this time. Surgery has removed NG tube and started Clear Liquid diet. 09/22/21: Patient is NPO for EGD this afternoon due to gastric distention causes such as ulcer, malignancy, ischemic changes, etc. Liquid stool in the rectum with mild mucosal enhancement, likely reflecting diarrhea. Could be secondary to acute viral illness. Most likely viral in nature and self limiting. 09/23/21: Unsure the reason for IV Zosyn? No UTI, Pneumonia, must be from GI symptoms as it was added on. Leukocytosis is improving. Normal lactic acid at this time. I see no reason to continue, will dc at this time. EGD w/ gastritis which GI states could explain part of symptoms. GI Recommends soft diet and continuing protonix. Tolerating low fiber diet without difficulty. Had a normal BM yesterday. Pt is feeling well with no complaints. Has not had any abdominal pain, nausea, or vomiting since admission. Surgery has signed off and GI states okay to be discharged. Pt being discharged home in stable condition. (2) Lactic acidosis: Code(s): E87.2 - Acidosis Status: Acute Assessment and Plan: Surgery believes secondary to acute dehydration & vomiting. Tolerating low fat diet at this time. Exam otherwise benign for acute ischemia. Repeat lactic acid is normal x2. (3) Nausea & vomiting: Code(s): R11.2 - Nausea with vomiting, unspecified Status: Acute Assessment and Plan: Resolved (4) Leukocytosis: Code(s): D72.829 - Elevated white blood cell count, unspecified Status: Acute Assessment and Plan: Urinalysis without signs of infection, CT abdomen not stating any significant type of an infection Chest x-ray shows likely atelectasis, no infiltrates suggestive of pneumonia Leukocytosis has resolved - pt has no symptoms at this time Unsure why he is on IV Zosyn, this was discontinued I suspect this was elevated secondary to vomiting prior to arrival. He has remained afebrile without tachycardia or tachypnea throughout duration of admission. 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 Stable per
[2021-09-25 14:14] VITALS: BP 101/54; PULSE 61; RESP 18; TEMP 36.3; O2SAT 96
--- NOTE | 2021-09-25 14:57 | PC.NURSE ---
On 09/25/21, the student, Roselia [facility], provided care and completed [facility] documentation on this patient. I have reviewed the student's documentation and agree with the findings.
--- NOTE | 2021-09-25 15:01 | PC.NURSE ---
Temp did not take due to noting in Celsius spot. BJL
== END 2021-09-25 14:51 | disposition home health service (06) ==
LOC: ANHED 00:55 → ANH3MED 04:58 → ANH3MEDSUR 09-23 02:05
PROVIDERS: Internal Medicine Gastroenterology; Physician Assistant; Admitting Provider Internal Medicine; Emergency Provider General Practice; PCP Internal Medicine; Visit Provider Internal Medicine
PROC: 0DJ08ZZ Inspection of Upper Intestinal Tract, Via Natural or Artificial Opening Endoscopic (ICD-10-PCS; CPT 43235; principal; 2021-09-22 14:15)
DX: K29.60 Other gastritis without bleeding (principal); K31.89 Other diseases of stomach and duodenum; R19.7 Diarrhea, unspecified; F03.90 Unspecified dementia, unspecified severity, without behavioral disturbance, psychotic disturbance, mood disturbance, and anxiety; I25.10 Atherosclerotic heart disease of native coronary artery without angina pectoris; N40.0 Benign prostatic hyperplasia without lower urinary tract symptoms; I10 Essential (primary) hypertension; E78.5 Hyperlipidemia, unspecified; D72.829 Elevated white blood cell count, unspecified; E87.2 Acidosis; R41.840 Attention and concentration deficit; K83.8 Other specified diseases of biliary tract; Z87.891 Personal history of nicotine dependence; K63.89 Other specified diseases of intestine
CPT/HCPCS: 43239; 36415; 51701; 71045; 74018; 74019; 74177; 80048; 80053; 81001; 83605; 83690; 83735; 85025; 85055; 88305; 88342; 93005; 96361; 96365; 96366; 96367; 96372; 96375; 96376; 97110; 97116; 97162; 97165; 97530; 97535; 99285; A9270; C9113; G0378; J0131; J1650; J2405; J2543; J2704; J7030; J7040; J7120; Q9967